=== PATIENT | male | born 1950 | race Caucasian/White ===

== ENCOUNTER 2016-08-10 17:28 | Emergency (ER) | payer MEDICARE, BC ==
[~2016-08-10] VITALS: Ht 172.7 cm; Wt 109.1 kg
[~2016-08-10 17:28] MED LIST: ALLOPURINOL100 MG PO; AMBIEN 5MG TABLE5 MG PO; AMLODIPINE10 MG PO; AMLOPIDINE PO; ASPIRIN 32325 MG/TAB PO; ATORVASTATIN PO; CHLORTHALIDONE25 MG PO; CIPRO 500MG TA500 MG PO; CLOPIDOGREL PO; COLCHICINE0.6 MG PO; COZAAR100 MG PO; DARVOCET-N-101 UDTAB PO; DAYPRO600 MG PO; DEXILANT30 MG PO; DOXAZOCIN PO; DOXAZOSIN4 MG PO; DOXYCYCLINE 10100 MG PO; EC NAPROSYN500 MG PO; ENALAPRIL PO; FISH OIL CONC1000 MG PO; HCTZ 25MG25 MG PO; LASIX 20MG TABL20 MG PO; LEVOTHYROXIN0.137 MG PO; LEVOTHYROXINE0.05 M1 PO; LIPITOR 10MG10 MG PO; LIPITOR20 MG PO; LIVALO PO; LIVALO4 MG PO; LORTAB 5/500 501 TAB PO; MASON NATURAL2000 IU PO; METOPROLOL50 MG PO; MOTRIN IB200 MG PO; NIACIN250 M2 PO; NITROSTAT0.4 MG/TAB SL; NORCO 325 MG-51 TAB PO; NORCO 325 MG-7.1 TAB PO; OMEPRAZOLE20 MG PO; PHENERGAN 25 TA25 MG PO; PHENERGAN25 MG RC; PLAVIX 75MG TAB75 MG PO; PRAVACHOL80 MG PO; PREDNISONE10 MG PO; PRILOSEC 20MG20 MG PO; PROBENECID PO; RANITIDINE 7575 MG PO; TESSALON PERLE200 MG PO; TOPROL XL 50MG50 MG PO; TOPROL XL25 MG PO; ULORIC40 MG PO; VENTOLIN0.09 MG IH; VICODIN 5/5001 UDTAB PO; VIT D; VITAMIN D32000 IU PO; VITAMIN D50000 IU PO; ZANTAC 150MG T150 MG PO; ZANTAC 7575 MG PO; ZOFRAN ODT4 MG PO; [UNRECOGNIZED DRUG - OTHER]; [UNRECOGNIZED DRUG - OTHER]
[2016-08-10 17:29] VITALS: TEMP 98.6
[2016-08-10 18:58] VITALS: BP 161/68; PULSE 74
== END 2016-08-10 18:58 | disposition home or self-care (01) ==
LOC: COL.ER 17:28
DX: J04.0 Acute laryngitis (principal); J02.9 Acute pharyngitis, unspecified; B97.89 Other viral agents as the cause of diseases classified elsewhere; I25.10 Atherosclerotic heart disease of native coronary artery without angina pectoris; Z95.5 Presence of coronary angioplasty implant and graft; I10 Essential (primary) hypertension

== ENCOUNTER 2016-08-12 18:37 | Inpatient (IN) | payer MEDICARE, BC ==
[~2016-08-12] VITALS: Ht 172.7 cm; Wt 103.1 kg
[2016-08-12 20:10] LABS: BASO % 0.4 % (0.0-2.0); EOS % 0.3 % (0-4.0); GRAN % 87.6 % (42.2-75.2); HEMATOCRIT 37.2 % (42.0-52.0); HEMOGLOBIN 13.1 g/dl (13.5-18.0); LYMPH # 0.5 (1.2-3.4); LYMPH % 5.9 % (20.0-51.0); MEAN CELL VOLUME 101 fl (80.0-100.0); MEAN CORPUSCULAR HEMOGLOBIN 35 pg (27.0-31.0); MEAN CORPUSCULAR HGB CONC 35 g/dl (33.0-37.0); MEAN PLATELET VOLUME 9.5 fl (7.4-10.4); MONO # 0.5 (0.1-0.6); MONO % 5.5 % (1.7-9.3); PLATELET COUNT 115 K/mm3 (130-400); REDCELL DISTRIBUTION WIDTH-CV 13.9 % (11.5-14.5); WHITE BLOOD COUNT 9.1 K/mm3 (4.8-10.8)
[2016-08-12 20:23] LABS: CALCIUM 9.1 mg/dL (8.4-10.2); CREATININE, serum 1.39 mg/dL (0.66-1.25); POTASSIUM 3.6 mmol/L (3.4-5.0)
[2016-08-12 20:58] LABS: INFLUENZA B NEGATIVE
[2016-08-12] MEDS ORDERED: NEURONTIN100 MG/CAP PO (21:46)
[2016-08-12] MEDS ORDERED: JANUVIA 100MG100 MG PO (21:46)
[2016-08-12 22:49] VITALS: BP 99/65; PULSE 103; TEMP 99.8
[2016-08-13] VITALS: BP 158/56; PULSE 115; TEMP 101.9
[2016-08-13 05:19] VITALS: BP 120/68; PULSE 80; TEMP 101.4
[2016-08-13 08:22] LABS: MEAN CELL VOLUME 102 fl (80.0-100.0); MEAN CORPUSCULAR HGB CONC 34 g/dl (33.0-37.0); MEAN PLATELET VOLUME 9.7 fl (7.4-10.4); PLATELET COUNT 114 K/mm3 (130-400); RED BLOOD COUNT 3.29 M/mm3 (4.20-5.60); REDCELL DISTRIBUTION WIDTH-CV 13.8 % (11.5-14.5); WHITE BLOOD COUNT 10.1 K/mm3 (4.8-10.8)
[2016-08-13 08:24] LABS: ADD PATHOLOGY DIFF REVIEW NO; HEMATOCRIT 33.7 % (42.0-52.0); HEMOGLOBIN 11.6 g/dl (13.5-18.0); MEAN CORPUSCULAR HEMOGLOBIN 35 pg (27.0-31.0)
[2016-08-13 08:35] LABS: CALCIUM 8.3 mg/dL (8.4-10.2); CREATININE, serum 1.58 mg/dL (0.66-1.25); POTASSIUM 3.4 mmol/L (3.4-5.0)
[2016-08-13 08:44] LABS: BAND 20 % (0-10); EOSINOPHIL 1 % (0-4); METAMYELOCYTE 1 % (0-0); NEUTROPHILS 65 % (42.0-75.2); PLATELET ESTIMATE DECREASED (NORMAL); TOTAL CELLS COUNTED 100
[2016-08-13 10:41] LABS: C-REACTIVE PROTEIN 24.6 mg/dL (0.0-0.9)
[2016-08-13 11:03] VITALS: BP 116/50; PULSE 96; TEMP 98.3
[2016-08-13 14:29] VITALS: BP 97/39; PULSE 85; TEMP 98.8
[2016-08-13 18:34] VITALS: BP 103/51; PULSE 77; TEMP 98.7
[2016-08-13 22:00] VITALS: BP 105/40; PULSE 80; TEMP 98.6
[2016-08-14 02:41] VITALS: BP 130/55; PULSE 81; TEMP 97.7
[2016-08-14 05:41] VITALS: BP 125/57; PULSE 86; TEMP 99.6
[2016-08-14 09:03] LABS: ADD PATHOLOGY DIFF REVIEW NO
[2016-08-14 09:06] LABS: MEAN CELL VOLUME 104 fl (80.0-100.0); MEAN CORPUSCULAR HGB CONC 34 g/dl (33.0-37.0); PLATELET COUNT 130 K/mm3 (130-400); RED BLOOD COUNT 2.96 M/mm3 (4.20-5.60); REDCELL DISTRIBUTION WIDTH-CV 14.1 % (11.5-14.5); WHITE BLOOD COUNT 8.5 K/mm3 (4.8-10.8)
[2016-08-14 09:11] LABS: HEMATOCRIT 30.8 % (42.0-52.0); HEMOGLOBIN 10.4 g/dl (13.5-18.0); MEAN CORPUSCULAR HEMOGLOBIN 35 pg (27.0-31.0)
[2016-08-14 09:18] LABS: CALCIUM 8.1 mg/dL (8.4-10.2); CREATININE, serum 1.53 mg/dL (0.66-1.25); MAGNESIUM 1.5 mg/dL (1.6-2.3); POTASSIUM 3.7 mmol/L (3.4-5.0)
[2016-08-14 09:33] LABS: BAND 7 % (0-10); EOSINOPHIL 1 % (0-4); NEUTROPHILS 84 % (42.0-75.2); PLATELET ESTIMATE NORMAL (NORMAL); TOTAL CELLS COUNTED 100
[2016-08-14 10:16] VITALS: BP 133/64; PULSE 84; TEMP 98.4
[2016-08-14 14:38] VITALS: BP 108/79; PULSE 85; TEMP 98.5
[2016-08-14 17:22] VITALS: BP 108/59; PULSE 80; TEMP 98.2
[2016-08-14 22:00] VITALS: BP 129/54; PULSE 90; TEMP 98.1
[2016-08-15 02:41] VITALS: BP 116/55; PULSE 83; TEMP 98.8
[2016-08-15 06:02] VITALS: BP 127/75; PULSE 98; TEMP 98.5
[2016-08-15 07:26] LABS: CREATININE, serum 1.39 mg/dL (0.66-1.25); MAGNESIUM 2.3 mg/dL (1.6-2.3); POTASSIUM 3.7 mmol/L (3.4-5.0)
[2016-08-15 10:56] VITALS: BP 126/69; PULSE 92; TEMP 98
[2016-08-15 14:00] VITALS: BP 122/58; PULSE 86; TEMP 99.7
[2016-08-15 17:17] VITALS: BP 122/50; PULSE 87; TEMP 98.8
[2016-08-15 22:20] VITALS: BP 138/54; PULSE 92; TEMP 98.8
[2016-08-16] VITALS (7 sets, daily range): BP systolic 112–144; BP diastolic 53–68; PULSE 70–91; TEMP 97.7–100
[2016-08-16 04:11] LABS: MEAN CELL VOLUME 103 fl (80.0-100.0); MEAN CORPUSCULAR HGB CONC 34 g/dl (33.0-37.0); MEAN PLATELET VOLUME 9.5 fl (7.4-10.4); PLATELET COUNT 145 K/mm3 (130-400); RED BLOOD COUNT 2.77 M/mm3 (4.20-5.60); REDCELL DISTRIBUTION WIDTH-CV 14.1 % (11.5-14.5); WHITE BLOOD COUNT 7.6 K/mm3 (4.8-10.8)
[2016-08-16 04:17] LABS: ADD PATHOLOGY DIFF REVIEW NO; HEMATOCRIT 28.5 % (42.0-52.0); HEMOGLOBIN 9.6 g/dl (13.5-18.0); MEAN CORPUSCULAR HEMOGLOBIN 35 pg (27.0-31.0)
[2016-08-16 04:19] LABS: CALCIUM 7.8 mg/dL (8.4-10.2); CREATININE, serum 1.33 mg/dL (0.66-1.25); POTASSIUM 3.5 mmol/L (3.4-5.0)
[2016-08-16 05:47] LABS: BAND 7 % (0-10); NEUTROPHILS 79 % (42.0-75.2); PLATELET ESTIMATE NORMAL (NORMAL); TOTAL CELLS COUNTED 100
[2016-08-17 03:53] VITALS: BP 125/64; PULSE 73; TEMP 97.9
[2016-08-17 07:38] VITALS: BP 121/54; PULSE 72; TEMP 97.8
[2016-08-17 11:07] LABS: INR 1.5 (0.8-3.0); PROTHROMBIN TIME 16.5 SECONDS (9.7-12.8)
[2016-08-17 11:10] LABS: PARTIAL THROMBOPLASTIN TIME 32.8 SECONDS (26.0-37.0)
[2016-08-17 12:15] VITALS: BP 117/58; PULSE 79; TEMP 98.4
[2016-08-17 15:28] VITALS: BP 112/53; PULSE 73; TEMP 98
[2016-08-17 20:40] VITALS: BP 120/58; PULSE 74; TEMP 98.3
[2016-08-17 22:12] VITALS: BP 105/52; PULSE 75; TEMP 98.3
[2016-08-18 02:27] VITALS: BP 119/58; PULSE 71; TEMP 98.3
[2016-08-18 07:57] LABS: CALCIUM 8.6 mg/dL (8.4-10.2); CREATININE, serum 1.34 mg/dL (0.66-1.25); MAGNESIUM 2.4 mg/dL (1.6-2.3); PHOSPHOROUS 2.7 mg/dL (2.5-4.5); POTASSIUM 3.3 mmol/L (3.4-5.0)
[2016-08-18 07:59] LABS: MEAN CELL VOLUME 103 fl (80.0-100.0); MEAN CORPUSCULAR HGB CONC 34 g/dl (33.0-37.0); MEAN PLATELET VOLUME 9.6 fl (7.4-10.4); PLATELET COUNT 234 K/mm3 (130-400); RED BLOOD COUNT 3.24 M/mm3 (4.20-5.60); REDCELL DISTRIBUTION WIDTH-CV 14.1 % (11.5-14.5); WHITE BLOOD COUNT 8.3 K/mm3 (4.8-10.8)
[2016-08-18 08:03] LABS: ADD PATHOLOGY DIFF REVIEW NO; HEMATOCRIT 33.3 % (42.0-52.0); HEMOGLOBIN 11.3 g/dl (13.5-18.0); MEAN CORPUSCULAR HEMOGLOBIN 35 pg (27.0-31.0)
[2016-08-18 08:32] VITALS: BP 124/65; PULSE 71; TEMP 98.3
[2016-08-18 08:40] LABS: C-REACTIVE PROTEIN 11.2 mg/dL (0.0-0.9)
[2016-08-18 08:47] LABS: BAND 3 % (0-10); EOSINOPHIL 1 % (0-4); METAMYELOCYTE 2 % (0-0); NEUTROPHILS 76 % (42.0-75.2); PLATELET ESTIMATE NORMAL (NORMAL); TOTAL CELLS COUNTED 100
[2016-08-18] MEDS ORDERED: LEVAQUIN 750MG750 M1 PO (11:06)
[2016-08-18] MEDS ORDERED: RT ADVAIR HFA 1112 G IH (11:41)
[2016-08-18 11:55] VITALS: BP 102/85; PULSE 83; TEMP 98.2
== END 2016-08-18 13:48 | disposition home or self-care (01) | DRG 190 ==
LOC: COL.ER 18:37 → SURG 21:20 → MEDICAL 08-16 21:07
PROVIDERS: Emergency Medicine; Family Medicine; Internal Medicine; Internal Medicine Pulmonary Disease; Nurse Practitioner Family
DX: J44.0 Chronic obstructive pulmonary disease with (acute) lower respiratory infection (principal); J18.9 Pneumonia, unspecified organism; N17.9 Acute kidney failure, unspecified; R04.2 Hemoptysis; I25.10 Atherosclerotic heart disease of native coronary artery without angina pectoris; I10 Essential (primary) hypertension; Z95.5 Presence of coronary angioplasty implant and graft; Z87.891 Personal history of nicotine dependence; J01.20 Acute ethmoidal sinusitis, unspecified; J01.00 Acute maxillary sinusitis, unspecified; J44.1 Chronic obstructive pulmonary disease with (acute) exacerbation; E11.9 Type 2 diabetes mellitus without complications; E87.6 Hypokalemia
CPT/HCPCS: 99223-AI; 99232-AI; 99233-AI; 99239; J0456; J0696; J1815; J1940; J1956; J2405; J2930; J3475; J7030; J7050

== ENCOUNTER 2017-06-27 11:04 | Day surgery (SDC) | payer MEDICARE, BC ==
[2017-06-27] VITALS (9 sets, daily range): BP systolic 125–178; BP diastolic 64–95; PULSE 57–66; TEMP 98
[~2017-06-27] VITALS: Ht 172.8 cm; Wt 100.0 kg
[~2017-06-27 11:04] MED LIST changes: +JANUVIA 100MG100 MG PO; +LEVAQUIN 750MG750 M1 PO; +NEURONTIN100 MG/CAP PO; +RT ADVAIR HFA 1112 G IH
[2017-06-27] MEDS ORDERED: VENTOLIN0.09 MG IH (11:36)
[2017-06-27] MEDS ORDERED: 00186-0372-20 IH (11:37)
[2017-06-27] MEDS ORDERED: COLACE 100100 MG/CAP PO (11:38)
[2017-06-27] MEDS ORDERED: FLONASEALLERGY NS (11:39)
[2017-06-27] MEDS ORDERED: CLARITIN 1010 MG/TAB PO (11:40)
[2017-06-27 11:41] LABS: HEMATOCRIT 41.1 % (42.0-52.0); HEMOGLOBIN 14.1 g/dl (13.5-18.0); MEAN CELL VOLUME 94 fl (80.0-100.0); MEAN CORPUSCULAR HEMOGLOBIN 32 pg (27.0-31.0); MEAN CORPUSCULAR HGB CONC 34 g/dl (33.0-37.0); MEAN PLATELET VOLUME 9.9 fl (7.4-10.4); PLATELET COUNT 145 K/mm3 (130-400); RED BLOOD COUNT 4.37 M/mm3 (4.20-5.60); REDCELL DISTRIBUTION WIDTH-CV 14.7 % (11.5-14.5)
[2017-06-27] MEDS ORDERED: TRELEGY ELLIPT1 EACH IH (11:41)
[2017-06-27] MEDS ORDERED: PROTONIX 40MG T40 MG PO (11:41)
[2017-06-27] MEDS ORDERED: AYR SALINE GEL1 NS (11:43)
[2017-06-27] MEDS ORDERED: RT SPIRIVA18 MCG IH (11:44)
[2017-06-27 11:46] LABS: CREATININE, serum 1.14 mg/dL (0.66-1.25); POTASSIUM 4.1 mmol/L (3.4-5.0)
[2017-06-27 11:48] LABS: PROTHROMBIN TIME 11.3 SECONDS (9.7-12.8)
== END 2017-06-27 19:44 | disposition home or self-care (01) ==
LOC: COL.CAR 11:04
PROVIDERS: Internal Medicine Interventional Cardiology
DX: I25.118 Atherosclerotic heart disease of native coronary artery with other forms of angina pectoris (principal); R94.39 Abnormal result of other cardiovascular function study; E78.5 Hyperlipidemia, unspecified; I10 Essential (primary) hypertension; M10.9 Gout, unspecified; Z95.5 Presence of coronary angioplasty implant and graft; Z79.51 Long term (current) use of inhaled steroids; Z79.82 Long term (current) use of aspirin; Z88.0 Allergy status to penicillin; Z88.2 Allergy status to sulfonamides; Z88.6 Allergy status to analgesic agent; Z79.02 Long term (current) use of antithrombotics/antiplatelets; Z79.84 Long term (current) use of oral hypoglycemic drugs; Z87.891 Personal history of nicotine dependence
CPT/HCPCS: J2250; J3010; Q9967

== ENCOUNTER 2018-03-06 11:46 | Emergency (ER) | payer MEDICARE, BC ==
[~2018-03-06] VITALS: Ht 170.2 cm; Wt 100.0 kg
[~2018-03-06 11:46] MED LIST changes: +00186-0372-20 IH; +AYR SALINE GEL1 NS; +CLARITIN 1010 MG/TAB PO; +COLACE 100100 MG/CAP PO; +FLONASEALLERGY NS; +PROTONIX 40MG T40 MG PO; +RT SPIRIVA18 MCG IH; +TRELEGY ELLIPT1 EACH IH
[2018-03-06 12:27] LABS: BASO # 0.1 (0.0-0.2); BASO % 0.7 % (0.0-2.0); EOS # 0.2 (0.0-0.7); EOS % 3.2 % (0-4.0); GRAN % 86.6 % (42.2-75.2); HEMATOCRIT 38.7 % (42.0-52.0); HEMOGLOBIN 13.5 g/dl (13.5-18.0); LYMPH # 0.3 (1.2-3.4); LYMPH % 3.6 % (20.0-51.0); MEAN CELL VOLUME 101 fl (80.0-100.0); MEAN CORPUSCULAR HEMOGLOBIN 35 pg (27.0-31.0); MEAN CORPUSCULAR HGB CONC 35 g/dl (33.0-37.0); MEAN PLATELET VOLUME 9.3 fl (7.4-10.4); MONO # 0.4 (0.1-0.6); MONO % 5.6 % (1.7-9.3); PLATELET COUNT 120 K/mm3 (130-400); RED BLOOD COUNT 3.85 M/mm3 (4.20-5.60); REDCELL DISTRIBUTION WIDTH-CV 13.7 % (11.5-14.5)
[2018-03-06 12:44] LABS: ALBUMIN 3.9 gm/dL (3.5-5.0); BILIRUBIN,TOTAL 1.1 mg/dL (0.0-1.0); CREATININE, serum 1.51 mg/dL (0.66-1.25); POTASSIUM 3.7 mmol/L (3.4-5.0); TOTAL PROTEIN 6.7 gm/dL (6.4-8.2)
[2018-03-06] MEDS ORDERED: LIPITOR20 MG PO (13:05)
[2018-03-06] MEDS ORDERED: ASPIRIN 32325 MG/TAB PO (13:05)
[2018-03-06] MEDS ORDERED: NORVASC2.5 MG PO (13:05)
[2018-03-06] MEDS ORDERED: COLACE 100100 MG/CAP PO (13:06)
[2018-03-06] MEDS ORDERED: CARDURA4 MG PO (13:06)
[2018-03-06] MEDS ORDERED: FLONASEALLERGY NS (13:07)
[2018-03-06] MEDS ORDERED: JANUVIA 100MG100 MG PO (13:07)
[2018-03-06] MEDS ORDERED: APRESOLINE 25MG25 MG PO (13:07)
[2018-03-06] MEDS ORDERED: SYNTHROID0.175 MG PO (13:08)
[2018-03-06] MEDS ORDERED: CLARITIN 1010 MG/TAB PO (13:08)
[2018-03-06] MEDS ORDERED: COZAAR100 MG PO (13:13)
[2018-03-06] MEDS ORDERED: NITROSTAT0.4 MG/TAB SL (13:14)
[2018-03-06] MEDS ORDERED: LOPRESSOR100 MG PO (13:14)
[2018-03-06] MEDS ORDERED: ZANTAC 7575 MG PO (13:15)
[2018-03-06] MEDS ORDERED: PLAVIX 75MG TAB75 MG PO (13:15)
[2018-03-06] MEDS ORDERED: PROTONIX 40MG T40 MG PO (13:15)
[2018-03-06] MEDS ORDERED: TRELEGY ELLIPT1 EACH IH (13:16)
[2018-03-06] MEDS ORDERED: ULORIC40 MG PO (13:16)
[2018-03-06] MEDS ORDERED: MASON NATURAL2000 IU PO (13:17)
[2018-03-06 13:42] LABS: COLLECTION METHOD CLEAN CATCH
[2018-03-06 13:51] LABS: MUCOUS Present /lpf; PH 5 (5-8); SQUAMOUS EPITHELIAL None Seen /hpf; URINE APPEARANCE Clear; URINE BACTERIA None Seen /hpf; URINE BILIRUBIN Negative (NEGATIVE); URINE BLOOD 1+ (NEGATIVE); URINE COLOR Yellow; URINE GLUCOSE Negative (NEGATIVE); URINE KETONE Negative (NEGATIVE); URINE LEUKOCYTE ESTERASE Negative (NEGATIVE); URINE NITRATE Negative (NEGATIVE); URINE PROTEIN(semi-quant) Negative (NEGATIVE); URINE RBC 0-2 /hpf; URINE UROBILINOGEN Negative (NEGATIVE)
[2018-03-06] MEDS ORDERED: DOXYCYCLINE 10100 MG PO (14:06)
[2018-03-06] MEDS ORDERED: PREDNISONE20 MG PO (14:06)
[2018-03-06] MEDS ORDERED: NEB MC (14:11)
[2018-03-06] MEDS ORDERED: IPRATROPIUM BROM3 M1 IH (14:11)
[2018-03-06 14:40] VITALS: BP 117/60; PULSE 75; TEMP 100.8
== END 2018-03-06 14:41 | disposition home or self-care (01) ==
LOC: COL.ER 11:46
PROVIDERS: Emergency Medicine; Physician Assistant
DX: J44.1 Chronic obstructive pulmonary disease with (acute) exacerbation (principal); J20.9 Acute bronchitis, unspecified; I10 Essential (primary) hypertension; I50.9 Heart failure, unspecified; E78.5 Hyperlipidemia, unspecified; E11.9 Type 2 diabetes mellitus without complications; E03.9 Hypothyroidism, unspecified; Z79.82 Long term (current) use of aspirin; Z79.51 Long term (current) use of inhaled steroids; Z79.02 Long term (current) use of antithrombotics/antiplatelets; Z87.891 Personal history of nicotine dependence; Z87.442 Personal history of urinary calculi; Z98.890 Other specified postprocedural states
CPT/HCPCS: J2405; J7030

== ENCOUNTER 2018-08-26 14:23 | Emergency (ER) | payer MEDICARE, BC ==
[~2018-08-26] VITALS: Ht 170.2 cm; Wt 86.4 kg
[~2018-08-26 14:23] MED LIST changes: +APRESOLINE 25MG25 MG PO; +CARDURA4 MG PO; +IPRATROPIUM BROM3 M1 IH; +LOPRESSOR100 MG PO; +NEB MC; +NORVASC2.5 MG PO; +PREDNISONE20 MG PO; +SYNTHROID0.175 MG PO
[2018-08-26 14:26] VITALS: BP 144/74; TEMP 97
[2018-08-26 16:54] VITALS: PULSE 64
== END 2018-08-26 16:10 | disposition home or self-care (01) ==
LOC: COL.ER 14:23
DX: S62.665A Nondisplaced fracture of distal phalanx of left ring finger, initial encounter for closed fracture (principal); S46.912A Strain of unspecified muscle, fascia and tendon at shoulder and upper arm level, left arm, initial encounter; S80.211A Abrasion, right knee, initial encounter; I25.2 Old myocardial infarction; I10 Essential (primary) hypertension; E11.9 Type 2 diabetes mellitus without complications; Z79.84 Long term (current) use of oral hypoglycemic drugs; Z79.82 Long term (current) use of aspirin; Z79.02 Long term (current) use of antithrombotics/antiplatelets; Z95.5 Presence of coronary angioplasty implant and graft; Z87.891 Personal history of nicotine dependence; W01.0XXA Fall on same level from slipping, tripping and stumbling without subsequent striking against object, initial encounter

== ENCOUNTER 2018-09-08 09:33 | Inpatient (IN) | payer MEDICARE, BC ==
[~2018-09-08] VITALS: Ht 172.7 cm; Wt 94.5 kg
[2018-09-08 09:56] LABS: COLLECTION METHOD CLEAN CATCH
[2018-09-08 10:09] LABS: MUCOUS Present /lpf; PH 5 (5-8); SQUAMOUS EPITHELIAL 0-2 /hpf; URINE APPEARANCE Clear; URINE BACTERIA None Seen /hpf; URINE BILIRUBIN Negative (NEGATIVE); URINE BLOOD 1+ (NEGATIVE); URINE COLOR Amber; URINE GLUCOSE Negative (NEGATIVE); URINE KETONE Negative (NEGATIVE); URINE LEUKOCYTE ESTERASE Negative (NEGATIVE); URINE NITRATE Negative (NEGATIVE); URINE PROTEIN(semi-quant) 1+ (NEGATIVE); URINE RBC 0-2 /hpf; URINE UROBILINOGEN Negative (NEGATIVE)
[2018-09-08 10:11] LABS: BASO % 0.5 % (0.0-2.0); EOS # 0.2 (0.0-0.7); EOS % 2.8 % (0-4.0); GRAN # 4.5 (1.4-6.5); GRAN % 75.6 % (42.2-75.2); MEAN CELL VOLUME 103 fl (80.0-100.0); MEAN CORPUSCULAR HEMOGLOBIN 35 pg (27.0-31.0); MEAN CORPUSCULAR HGB CONC 34 g/dl (33.0-37.0); MONO # 0.3 (0.1-0.6); MONO % 4.8 % (1.7-9.3); PLATELET COUNT 97 K/mm3 (130-400); RED BLOOD COUNT 2.86 M/mm3 (4.20-5.60); REDCELL DISTRIBUTION WIDTH-CV 15.6 % (11.5-14.5)
[2018-09-08 10:13] LABS: HEMATOCRIT 29.5 % (42.0-52.0)
[2018-09-08 10:21] LABS: ALANINE AMINOTRANSFERASE 19 U/L (21-72); ALBUMIN 3.5 gm/dL (3.5-5.0); ALKALINE PHOSPHATASE 58 U/L (50-136); ANION GAP 9 mmol/L (7-16); AST,SGOT 22 U/L (15-37); BILIRUBIN,TOTAL 1.1 mg/dL (0.0-1.0); BLOOD UREA NITROGEN 18 mg/dL (9-20); CALCIUM 8.3 mg/dL (8.4-10.2); CARBON DIOXIDE 25 mmol/L (22-30); CHLORIDE 107 mmol/L (98-107); CREATININE, serum 1.47 (0.66-1.25); GLUCOSE 128 mg/dL (74-106); LIPASE 46 U/L (23-300); SODIUM 141 mmol/L (137-145); TOTAL PROTEIN 5.8 gm/dL (6.4-8.2)
[2018-09-08 10:22] LABS: C-REACTIVE PROTEIN < 0.5 mg/dL (0.0-0.9)
[2018-09-08 16:33] VITALS: BP 150/50; PULSE 54; TEMP 97.8
--- NOTE | 2018-09-08 18:00 | NUR ---
Hospitalist saw patient. NPO. IV fluids infusing. Denies pain and nausea. Ambulatory to bathroom to void frequently. Family here.
[2018-09-08] MEDS ORDERED: LOPRESSOR100 MG PO (18:02)
[2018-09-08] MEDS ORDERED: ULTRAM 50MG TAB50 MG PO (18:05)
[2018-09-08] MEDS ORDERED: JANUVIA 100MG100 MG PO (18:06)
[2018-09-08] MEDS ORDERED: APRESOLINE 25MG25 MG PO (18:06)
[2018-09-08] MEDS ORDERED: IMDUR 30MG30 MG/TAB PO (18:08)
[2018-09-08] MEDS ORDERED: NEURONTIN100 MG/CAP PO (18:08)
[2018-09-08] MEDS ORDERED: COLCRYS0.6 MG PO (18:09)
--- NOTE | 2018-09-08 18:13 | NUR ---
THE PTS DAUGHTER REPORTED THAT HE IS ALLERGIC TO PENICILLINS AND AMOXICILLIN. MAXAPIME HAS BEEN ORDERED. CALL TO AILIN TERRELL WHO IS AWARE AND STATED, "YES, BUT IT'S PROBABLY THE BEST CHOICE FOR HIM". WE WILL MONITOR HIM FOR ADVERSE REACTION.
[2018-09-08 20:45] VITALS: BP 168/68; PULSE 61; TEMP 97.9
[2018-09-09] VITALS (7 sets, daily range): BP systolic 119–162; BP diastolic 46–61; PULSE 58–71; TEMP 97.7–99
--- NOTE | 2018-09-09 08:00 | NUR ---
Alert. Denies nausea. States has a few sharp pains occasionally in right back. Denies need for pain med. IV fluids infusing. Ambulatory with standby assist. Family here.
[2018-09-09 09:29] LABS: BASO % 0.5 % (0.0-2.0); EOS # 0.1 (0.0-0.7); EOS % 1.6 % (0-4.0); GRAN # 4.7 (1.4-6.5); GRAN % 81.4 % (42.2-75.2); LYMPH # 0.7 (1.2-3.4); LYMPH % 11.5 % (20.0-51.0); MEAN CELL VOLUME 103 fl (80.0-100.0); MEAN CORPUSCULAR HGB CONC 34 g/dl (33.0-37.0); MEAN PLATELET VOLUME 9.9 fl (7.4-10.4); MONO # 0.3 (0.1-0.6); MONO % 4.5 % (1.7-9.3); PLATELET COUNT 96 K/mm3 (130-400); RED BLOOD COUNT 2.71 M/mm3 (4.20-5.60); REDCELL DISTRIBUTION WIDTH-CV 15.7 % (11.5-14.5)
[2018-09-09 09:33] LABS: HEMATOCRIT 27.8 % (42.0-52.0); HEMOGLOBIN 9.5 g/dl (13.5-18.0); MEAN CORPUSCULAR HEMOGLOBIN 35 pg (27.0-31.0)
[2018-09-09 10:02] LABS: ALBUMIN 3.2 gm/dL (3.5-5.0); BILIRUBIN,TOTAL 1.4 mg/dL (0.0-1.0); CALCIUM 8.3 mg/dL (8.4-10.2); CREATININE, serum 1.38 (0.66-1.25); MAGNESIUM 1.8 mg/dL (1.6-2.3); POTASSIUM 3.8 mmol/L (3.4-5.0); TOTAL PROTEIN 5.4 gm/dL (6.4-8.2)
[2018-09-09 13:16] LABS: TSH w REFLEX 0.049 uIU/mL (0.465-4.680)
--- NOTE | 2018-09-09 13:38 | NUR ---
Plan: To go home with Maryjane and DTR Nalini Gibbs . Patient reports that his is care support and will also transport home. Patient reports that he has grab bars at home, uses a CPAP every night. nebulizer as needed, and obtians medications from [facility]. Patient denies the need for Home health care. Patient inidcated that his PCP is Dr. Maxine Sanchez and a f/u in [facility]. Patient denies having any other care concerns. Patient indicated there is no dpoa and declined to set one at this time. Will continue to follow.
--- NOTE | 2018-09-09 18:00 | NUR ---
Drowsy. No c/o pain or nausea. IV antibiotic infusing. Family here.
--- NOTE | 2018-09-10 02:31 | NUR ---
Patient complains of upset stomach. Crackers and sprite given to patient. Earlier in the shift patient stated he was having some troubles breathing. Oxygen saturation 93% on 2L. RT came to bedside and administered breathing treatment. Patient states that sitting up on the side of the bed helped him feel better. Patient educated on ambulation, getting out of bed during the day, and deep breathing to help expand his lungs, so he doesn't feel so short of breath. Patient has CPAP on currently. Will continue to monitor patient.
[2018-09-10 04:10] VITALS: BP 147/59; PULSE 68; TEMP 97.9
[2018-09-10 06:41] LABS: BASO % 0.2 % (0.0-2.0); EOS % 0.5 % (0-4.0); GRAN # 4.9 (1.4-6.5); GRAN % 82.2 % (42.2-75.2); LYMPH # 0.7 (1.2-3.4); LYMPH % 11.3 % (20.0-51.0); MEAN CELL VOLUME 104 fl (80.0-100.0); MEAN CORPUSCULAR HGB CONC 34 g/dl (33.0-37.0); MEAN PLATELET VOLUME 9.8 fl (7.4-10.4); MONO # 0.3 (0.1-0.6); MONO % 5.1 % (1.7-9.3); PLATELET COUNT 86 K/mm3 (130-400); RED BLOOD COUNT 2.58 M/mm3 (4.20-5.60); REDCELL DISTRIBUTION WIDTH-CV 15.8 % (11.5-14.5)
[2018-09-10 06:45] LABS: HEMATOCRIT 26.9 % (42.0-52.0); MEAN CORPUSCULAR HEMOGLOBIN 35 pg (27.0-31.0)
[2018-09-10 06:57] LABS: CALCIUM 8.1 mg/dL (8.4-10.2); CREATININE, serum 1.33 (0.66-1.25); POTASSIUM 3.8 mmol/L (3.4-5.0)
[2018-09-10 08:17] VITALS: BP 137/62; PULSE 67; TEMP 98.6
--- NOTE | 2018-09-10 10:30 | NUR ---
Patient alert and oriented, answers questions appropriately. See assessment. Abdomen soft, non tender, non distended. Bowel sounds active x4 quads. +Flatus. +Bowel movement. No c/o pain or discomfort. at bedside continously stating patient is nauseated or in pain. Patient frequently interrupts and says he is fine. asks for nausea and pain medication for patient, patient refuses, stating he is fine and has no needs. No other c/o at this time.
[2018-09-10 12:28] VITALS: BP 120/48; PULSE 63; TEMP 99.5
[2018-09-10] MEDS ORDERED: LEVAQUIN 750MG750 M1 PO (14:39)
[2018-09-10] MEDS ORDERED: FLAGYL500 MG PO (14:39)
--- NOTE | 2018-09-10 16:00 | NUR ---
Discharge instructions reviewed with patient and spouse, verbalized understanding. Discharged via wheelchair to auto/home with spouse at 1600.
== END 2018-09-10 16:00 | disposition home or self-care (01) | DRG 445 ==
LOC: COL.ER 09:33 → SURG 12:35
PROVIDERS: Physician Assistant; Student in an Organized Health Care Education/Training Program; ADMIT Family Medicine
DX: K81.0 Acute cholecystitis (principal); J90 Pleural effusion, not elsewhere classified; D69.6 Thrombocytopenia, unspecified; I25.10 Atherosclerotic heart disease of native coronary artery without angina pectoris; J44.9 Chronic obstructive pulmonary disease, unspecified; E66.9 Obesity, unspecified; R00.1 Bradycardia, unspecified; E11.22 Type 2 diabetes mellitus with diabetic chronic kidney disease; D53.9 Nutritional anemia, unspecified; G47.33 Obstructive sleep apnea (adult) (pediatric); E78.5 Hyperlipidemia, unspecified; K21.9 Gastro-esophageal reflux disease without esophagitis; E03.9 Hypothyroidism, unspecified; I12.9 Hypertensive chronic kidney disease with stage 1 through stage 4 chronic kidney disease, or unspecified chronic kidney disease; N18.9 Chronic kidney disease, unspecified; M19.90 Unspecified osteoarthritis, unspecified site; M10.9 Gout, unspecified; Z87.442 Personal history of urinary calculi; Z79.82 Long term (current) use of aspirin; Z79.02 Long term (current) use of antithrombotics/antiplatelets; I25.2 Old myocardial infarction; Z79.51 Long term (current) use of inhaled steroids; Z95.5 Presence of coronary angioplasty implant and graft; Z79.890 Hormone replacement therapy; Z87.891 Personal history of nicotine dependence; Z68.30 Body mass index [BMI] 30.0-30.9, adult
CPT/HCPCS: 99239; A4216; J0692; J1956; J2270; J2405; J2550; J7030; J7120; Q9967

== ENCOUNTER → 2018-09-12 | Outpatient (CLI) | payer MEDICARE, BC ==
[~2018-09-12] MED LIST changes: +COLCRYS0.6 MG PO; +FLAGYL500 MG PO; +IMDUR 30MG30 MG/TAB PO; +ULTRAM 50MG TAB50 MG PO
== END ==
LOC: COL.VAS 13:30
DX: Z01.810 Encounter for preprocedural cardiovascular examination (principal); I50.9 Heart failure, unspecified

== ENCOUNTER 2018-09-14 11:56 | Inpatient (IN) | payer MEDICARE, BC ==
[~2018-09-14] VITALS: Ht 172.7 cm; Wt 88.4 kg
[2018-09-14 13:18] VITALS: BP 134/54; PULSE 70; TEMP 98.2
--- NOTE | 2018-09-14 14:27 | NUR ---
patient arrived to floor. med rx attempted. patient was uninformed of medications he is taking and when he should be taking them. family at bedside.
[2018-09-14 15:23] LABS: BASO % 0.4 % (0.0-2.0); EOS # 0.1 (0.0-0.7); EOS % 1.9 % (0-4.0); GRAN # 3.8 (1.4-6.5); GRAN % 78.1 % (42.2-75.2); LYMPH # 0.6 (1.2-3.4); LYMPH % 13.2 % (20.0-51.0); MEAN CELL VOLUME 102 fl (80.0-100.0); MEAN CORPUSCULAR HGB CONC 35 g/dl (33.0-37.0); MEAN PLATELET VOLUME 9.5 fl (7.4-10.4); MONO # 0.3 (0.1-0.6); MONO % 5.8 % (1.7-9.3); PLATELET COUNT 153 K/mm3 (130-400); RED BLOOD COUNT 2.52 M/mm3 (4.20-5.60); REDCELL DISTRIBUTION WIDTH-CV 16.9 % (11.5-14.5)
[2018-09-14 15:24] LABS: HEMATOCRIT 25.6 % (42.0-52.0); MEAN CORPUSCULAR HEMOGLOBIN 36 pg (27.0-31.0)
[2018-09-14 15:36] LABS: ALBUMIN 3.1 gm/dL (3.5-5.0); CALCIUM 8.3 mg/dL (8.4-10.2); CREATININE, serum 1.29 (0.66-1.25); TOTAL PROTEIN 5.3 gm/dL (6.4-8.2)
[2018-09-14 15:38] LABS: POTASSIUM 2.9 mmol/L (3.4-5.0)
[2018-09-14 17:26] VITALS: BP 167/67; PULSE 82; TEMP 97.7
--- NOTE | 2018-09-14 17:52 | NUR ---
Patient resting in bed. Hospitalist team has rounded. Orders obtained. K+ being replaced per orders. Reviewed with patient plan of care. He reports feeling nervous/worried. Tried to reassure him. glazier supervisor started IV to Right wrist. He is ordering dinner. His family at bedside.
[2018-09-14 19:38] VITALS: BP 128/60; PULSE 72; TEMP 98.3
--- NOTE | 2018-09-14 20:00 | NUR ---
Report received, assumed care for shift production supervisor. Assessment complete. VS stable. Denies pain, N/V or shortness of breath. Plan of care discussed for this shift to inculed K Protocol Verbalizes understanding. Instructed to call for assistance to bathroom as needed. Edema noted to bilateral lower extremities. Denies questions or concerns at this time. Call light in reach. Will monitor.
--- NOTE | 2018-09-14 21:40 | NUR ---
C/O nausea. States potassium seems to be upsetting his stomach. New orders received from hospitalist for antiemetic. Will monitor.
--- NOTE | 2018-09-14 22:30 | NUR ---
States nausea is better. Denies pain. WIll monitor.
[2018-09-14 23:51] VITALS: BP 152/67; PULSE 64; TEMP 98.3
[2018-09-15] VITALS (7 sets, daily range): BP systolic 117–177; BP diastolic 58–88; PULSE 64–77; TEMP 98.1–98.4
[2018-09-15 01:38] LABS: POTASSIUM 3.2 mmol/L (3.4-5.0)
[2018-09-15 02:04] LABS: CALCIUM 8.3 mg/dL (8.4-10.2); CREATININE, serum 1.33 (0.66-1.25)
--- NOTE | 2018-09-15 06:00 | NUR ---
Rested off and on this shift. Last dose of potassium given per protocol for K level of 3.2/GFR 53. Denies pain, nausea or shortness of breath. Encouraged to call for questions or concerns. Will continue to monitor.
[2018-09-15 08:58] LABS: BASO % 0.5 % (0.0-2.0); EOS # 0.1 (0.0-0.7); EOS % 2.3 % (0-4.0); GRAN % 69.6 % (42.2-75.2); LYMPH # 0.9 (1.2-3.4); LYMPH % 20.1 % (20.0-51.0); MEAN CELL VOLUME 103 fl (80.0-100.0); MEAN CORPUSCULAR HGB CONC 34 g/dl (33.0-37.0); MEAN PLATELET VOLUME 9.9 fl (7.4-10.4); MONO # 0.3 (0.1-0.6); MONO % 6.8 % (1.7-9.3); PLATELET COUNT 184 K/mm3 (130-400); REDCELL DISTRIBUTION WIDTH-CV 17.2 % (11.5-14.5)
[2018-09-15 09:04] LABS: CALCIUM 8.5 mg/dL (8.4-10.2); CREATININE, serum 1.18 (0.66-1.25); POTASSIUM 3.5 mmol/L (3.4-5.0)
[2018-09-15 09:13] LABS: HEMATOCRIT 26.8 % (42.0-52.0); HEMOGLOBIN 9.2 g/dl (13.5-18.0); MEAN CORPUSCULAR HEMOGLOBIN 35 pg (27.0-31.0)
--- NOTE | 2018-09-15 11:14 | NUR ---
Visited and provided spiritual care to the patient.
--- NOTE | 2018-09-15 17:30 | NUR ---
No complaints. Denied shortness of breath today. Chest x-ray taken. Diuresing well. Potassium replaced per protocol. Walked in halls with family.
--- NOTE | 2018-09-15 20:00 | NUR ---
Assumed care for veterinary hospital shift lead. Assessment complete. VS stable. Family at bedside. Plan of care discussed for this shift to include Lasix. Verbalizes understanding. Denies nausea at this time. Denies pain. States he is not short of breath now but does get a little "winded" when up to bathroom. Denies any questions or concerns. Call light in reach. Will monitor.
--- NOTE | 2018-09-15 22:10 | NUR ---
C/O nausea but daughter states she doesnt want him to take the phenergan as it makes his dizzy. Patient states he will take phenergan that he doesnt mind. I did contact XANDER Duong to see if Zofran was an option. New order for EKG-notified cardiopulmonary. Update patient and family. Patient states nausea has subsided now and doesnt need anything but will let this nurse know if nausea returns.
[2018-09-16] VITALS (8 sets, daily range): BP systolic 126–166; BP diastolic 57–82; PULSE 64–73; TEMP 97.9–98.4
--- NOTE | 2018-09-16 12:14 | NUR ---
Patient lives at home with his (Lou Strong [phone]) in [place], [place] and plans to return home upon recovery. Patient is moderately indpendent with daily living activites with no anticipated durable medical equipment needs at this time, his primary care physician is Dr. Maxine Castro and also receives medical care from Dr. Abhay Garibay, his pharmacy is [facility], and he does not have advance directives of healthcare completed at this time. creative services coordinator will follow as needed.
--- NOTE | 2018-09-16 18:00 | NUR ---
Diuresing well after IV Lasix. Complained of loose stools. No c/o nausea or pain. Ambulatory with standby assist. No c/o shortness of breath. Family in room.
--- NOTE | 2018-09-16 20:00 | NUR ---
Report received, assumed care for filer repairer. Assessment complete. VS stable. Plan of care discussed for AM CT scan and blood draw to recheck potassium levels. Verbalizes understanding and denies questions. Noted to have +2 edema to bilateral lower extremitites. Denies pain. Denies shortness of breath except with excertion. States he hasnt had any more loose stools yet. Teaching done on need for stool specimen. Verbalizes understanding. at bedside. Call light in reach, bed in low position/wheels locked. Will monitor.
[2018-09-17 03:38] VITALS: BP 135/67; PULSE 75; TEMP 98.9
[2018-09-17 06:23] LABS: BASO % 0.5 % (0.0-2.0); EOS # 0.2 (0.0-0.7); GRAN # 4.7 (1.4-6.5); GRAN % 72.6 % (42.2-75.2); HEMATOCRIT 32.7 % (42.0-52.0); HEMOGLOBIN 10.9 g/dl (13.5-18.0); LYMPH # 0.9 (1.2-3.4); LYMPH % 14.4 % (20.0-51.0); MEAN CELL VOLUME 105 fl (80.0-100.0); MEAN CORPUSCULAR HEMOGLOBIN 35 pg (27.0-31.0); MEAN CORPUSCULAR HGB CONC 33 g/dl (33.0-37.0); MEAN PLATELET VOLUME 9.1 fl (7.4-10.4); MONO # 0.6 (0.1-0.6); MONO % 8.9 % (1.7-9.3); PLATELET COUNT 197 K/mm3 (130-400); RED BLOOD COUNT 3.12 M/mm3 (4.20-5.60); REDCELL DISTRIBUTION WIDTH-CV 18.2 % (11.5-14.5)
[2018-09-17 06:35] LABS: CREATININE, serum 1.61 (0.66-1.25); MAGNESIUM 1.8 mg/dL (1.6-2.3); POTASSIUM 3.3 mmol/L (3.4-5.0)
[2018-09-17 07:21] VITALS: BP 124/81; PULSE 68; TEMP 98.7
[2018-09-17 11:22] VITALS: BP 111/91; PULSE 67; TEMP 98.3
[2018-09-17 16:22] VITALS: BP 96/43; PULSE 59; TEMP 97.9
--- NOTE | 2018-09-17 18:30 | NUR ---
Patient had a good day. He seems to be feeling better. No complaints of pain or nausea today. He was able to shower and walked in the halls a few times. His family is at bedside. He is tolerating his diet without issues. No other changes at this time. Call light within reach.
--- NOTE | 2018-09-17 20:00 | NUR ---
PATIENT IS A&O. VSS. DENIES PAIN AT THIS TIME. PATIENT SCHEDULED FOR XOCHITL LATE TOMORROW. PATIENT NPO AFTER MIDNIGHT WITH SIPS ALLOWED TILL AM SINCE LATE SURGERY. BS 142, NO SSI. PM MEDS GIVEN. NO C/O N/V. LEFT HAND SPLINT DUE TO FALL AT HOME BEFORE ADMISSION. REPORTS PAIN IS MANAGED AT THIS TIME. HEAD TO TOE ASSESSMENT WNL. FAMILY AT BEDSIDE. NO OTHER NEEDS. CALL LIGHT IN REACH.
[2018-09-17 21:34] VITALS: BP 123/52; PULSE 68; TEMP 98.7
[2018-09-17 23:40] VITALS: BP 112/60; PULSE 75; TEMP 98.1
[2018-09-18] VITALS (12 sets, daily range): BP systolic 99–147; BP diastolic 49–83; PULSE 55–74; TEMP 97.5–98.6
[2018-09-18 07:04] LABS: BASO % 0.4 % (0.0-2.0); EOS # 0.2 (0.0-0.7); EOS % 3.1 % (0-4.0); GRAN # 3.8 (1.4-6.5); GRAN % 70.6 % (42.2-75.2); HEMOGLOBIN 10.2 g/dl (13.5-18.0); LYMPH # 0.8 (1.2-3.4); LYMPH % 14.7 % (20.0-51.0); MEAN CELL VOLUME 105 fl (80.0-100.0); MEAN CORPUSCULAR HEMOGLOBIN 35 pg (27.0-31.0); MEAN CORPUSCULAR HGB CONC 33 g/dl (33.0-37.0); MEAN PLATELET VOLUME 9.4 fl (7.4-10.4); MONO # 0.6 (0.1-0.6); MONO % 10.5 % (1.7-9.3); PLATELET COUNT 164 K/mm3 (130-400); RED BLOOD COUNT 2.93 M/mm3 (4.20-5.60); REDCELL DISTRIBUTION WIDTH-CV 18.1 % (11.5-14.5)
[2018-09-18 07:07] LABS: CREATININE, serum 1.49 (0.66-1.25); MAGNESIUM 1.8 mg/dL (1.6-2.3)
[2018-09-18 07:15] LABS: HEMATOCRIT 30.7 % (42.0-52.0)
[2018-09-18 07:21] LABS: POTASSIUM 2.8 mmol/L (3.4-5.0)
--- NOTE | 2018-09-18 11:47 | NUR ---
First visit from the line walker. No needs right now.
--- NOTE | 2018-09-18 14:29 | NUR ---
Patient is going down for surgery at this time. His family is at bedside. Consent signed and on chart. Notified Jessica Sloan CRNA that there is potassium recheck pending in lab. No other changes at this time.
--- NOTE | 2018-09-18 18:30 | NUR ---
Patient has been doing well since surgery. He is alert and oriented. His family is at bedside. Discussed what he have to eat and dink tonight. He is not wanting to start with solids until tomorrow. He is taking in ice chips at this time. His last 2 bags of potassium will be given. I have started one and spool tender will give the next one. Turned down the rate on the potassium to 70ml/hr because he was not tolerating it at 100ml/hr. No other changes at this time. Call light within reach.
[2018-09-19] VITALS (7 sets, daily range): BP systolic 106–143; BP diastolic 43–104; PULSE 56–73; TEMP 97.6–98.3
--- NOTE | 2018-09-19 01:46 | NUR ---
PATIENT RPORTING FEELING LIKE HE HAS FABBY URINATE. ASSISTED OUT OF BED TO BATHRROM ATTEMPTED TO URINATE SITTING ON TOILET AND STANDING UP WITH URINAL X 15 MINUETS. UNSUCESSFUL. REPORTING PRESSURE AND URGE TO URINATE. BLADDER SCAN OBTAINED. WITH 350ML SCANNED. CALL TO DR CANDELARIA NOTIFIED OF ABOVE PATIENT CONDITION. ORDER RECIVED TO STRAIGHT CATH NOW AND THEN IF UNABLE TO VOID PLACE CATHETER.
--- NOTE | 2018-09-19 07:00 | NUR ---
Report received from Crystal Smith. Pt in bathroom standing over toilet, trying to urinate for past 20 minutes but unable. Assisted back to bed. Ordered breakfast. Will try to urinate again after breakfast.
[2018-09-19 08:16] LABS: CREATININE, serum 1.8 (0.66-1.25); POTASSIUM 4.3 mmol/L (3.4-5.0)
--- NOTE | 2018-09-19 08:47 | NUR ---
Assessment charted. Pt able to void after breakfast, did take a while to get the stream going but successful. Lap sitesx5 are CDI and covered with bandaids. Denies pain. Passing gas. Feeling well. IVF to RW. Will continue to monitor.
[2018-09-19 14:30] LABS: COLLECTION METHOD CLEAN CATCH
[2018-09-19 14:36] LABS: MUCOUS Present /lpf; PH 5 (5-8); SQUAMOUS EPITHELIAL None Seen /hpf; URINE APPEARANCE Clear; URINE BACTERIA None Seen /hpf; URINE BILIRUBIN Negative (NEGATIVE); URINE BLOOD 1+ (NEGATIVE); URINE COLOR Yellow; URINE GLUCOSE 2+ (NEGATIVE); URINE KETONE Negative (NEGATIVE); URINE LEUKOCYTE ESTERASE Negative (NEGATIVE); URINE NITRATE Negative (NEGATIVE); URINE PROTEIN(semi-quant) Negative (NEGATIVE); URINE RBC 0-2 /hpf; URINE UROBILINOGEN Negative (NEGATIVE)
--- NOTE | 2018-09-19 18:48 | NUR ---
Pt has done very well today. Up ambulating floors ad lia, did laps of entire 3rd floor. Urinating well now, without difficulty. Taking PO well. Deneis pain. Resting in bed, will give bedside shift report to nightshift nurse who will resume care.
--- NOTE | 2018-09-19 19:11 | NUR ---
Report received from Mary RN
--- NOTE | 2018-09-19 20:24 | NUR ---
Resting in bed. Assessment complete. Left lower lobe crackles present. Otherwise clear. Heart sounds normal. Bowels active x4. Pusles strong throughout. Right lower leg edema present +1. Denies pain. X5 lap sites in place on ABD with bandaides. No drainage present. Cast to left wrist present. Right wrist INT flushed without complications. Denies needs at this time. Call light in reach. at bedside.
--- NOTE | 2018-09-20 03:01 | NUR ---
Rating ABD pain 3/10. Provided with PRN tylenol at this time. Call light in reach.
[2018-09-20 03:51] VITALS: BP 116/65; PULSE 54; TEMP 97.5
--- NOTE | 2018-09-20 05:36 | NUR ---
Patient required x1 dose of PRN tylenol for ABD pain. Otherwise uneventful night. remained at bedside throughout evening. Resting in bed this AM. Call light in reach.
--- NOTE | 2018-09-20 07:04 | NUR ---
Report given to ZAINA De La O
[2018-09-20 07:21] LABS: CREATININE, serum 1.68 (0.66-1.25); POTASSIUM 3.4 mmol/L (3.4-5.0)
[2018-09-20 07:23] LABS: BASO % 0.2 % (0.0-2.0); EOS # 0.1 (0.0-0.7); EOS % 0.9 % (0-4.0); GRAN # 4.2 (1.4-6.5); GRAN % 75.1 % (42.2-75.2); LYMPH # 0.6 (1.2-3.4); LYMPH % 10.9 % (20.0-51.0); MEAN CELL VOLUME 106 fl (80.0-100.0); MEAN CORPUSCULAR HGB CONC 33 g/dl (33.0-37.0); MONO # 0.7 (0.1-0.6); MONO % 12.4 % (1.7-9.3); PLATELET COUNT 139 K/mm3 (130-400); RED BLOOD COUNT 2.84 M/mm3 (4.20-5.60); REDCELL DISTRIBUTION WIDTH-CV 17.2 % (11.5-14.5)
[2018-09-20 07:25] LABS: HEMATOCRIT 30.2 % (42.0-52.0); HEMOGLOBIN 9.8 g/dl (13.5-18.0); MEAN CORPUSCULAR HEMOGLOBIN 35 pg (27.0-31.0)
--- NOTE | 2018-09-20 08:00 | NUR ---
PATIENT IS SITTING UP AT THE BEDSIDE WITH BREAKFAST TRAY. PATIENT IS A&OX4. VSS. BOWEL SOUNDS ACTIVE ALL FOUR QUADRANTS. PATIENT TOLERATING DIET WITHOUT ANY COMPLAINTS OF N/V. ABDOMINAL LAP SITES X5 DRESSED WITH BANDAIDS AND ARE CD&I. POSITIVE PEDAL PULSES EQUAL BILATERALLY. RIGHT WRIST TO INT. CALL LIGHT WITHIN REACH. PRESENT AT THE BEDSIDE.
[2018-09-20 08:51] VITALS: BP 135/55; PULSE 52; TEMP 97.5
[2018-09-20] MEDS ORDERED: INCRUSE EL62.5 MCG/A IH (08:54)
[2018-09-20] MEDS ORDERED: PLAVIX 75MG TAB75 MG PO (09:25)
--- NOTE | 2018-09-20 11:38 | NUR ---
Patient will discharge home today with his . Patient independent at home. Patient does not have any concerns with returning home. SW presented IM to patient and . Patient signed and was provided a copy.
--- NOTE | 2018-09-20 11:40 | NUR ---
PATIENT'S RIGHT WRIST INT DISCONTINUED PER PENDING DISCHARGE. TIP INTACT. PATIENT TOLERATED WELL. DISCHARGE INSTRUCTIONS REVIEWED WITH PATIENT AND FAMILY. ALL QUESTIONS ANSWERED. PATIENT PERSONAL BELONGINGS GATHERED. PATIENT TAKEN TO PERSONAL VEHICLE VIA WHEELCHAIR BY SURGICAL STAFF. PATIENT DISCHARGED.
== END 2018-09-20 11:50 | disposition home or self-care (01) | DRG 988 ==
LOC: SURG 11:56
PROVIDERS: Internal Medicine Pulmonary Disease; Nurse Practitioner Family; Physician Assistant; Surgery; ADMIT Family Medicine
PROC: 5A09457 Assistance with Respiratory Ventilation, 24-96 Consecutive Hours, Continuous Positive Airway Pressure (ICD-10-PCS; 2018-09-16)
PROC: 8E0W4CZ Robotic Assisted Procedure of Trunk Region, Percutaneous Endoscopic Approach (ICD-10-PCS; 2018-09-18)
PROC: 0FT44ZZ Resection of Gallbladder, Percutaneous Endoscopic Approach (ICD-10-PCS; principal; 2018-09-18 15:00)
DX: J18.9 Pneumonia, unspecified organism (principal); N17.9 Acute kidney failure, unspecified; I25.10 Atherosclerotic heart disease of native coronary artery without angina pectoris; J44.9 Chronic obstructive pulmonary disease, unspecified; G47.33 Obstructive sleep apnea (adult) (pediatric); M10.9 Gout, unspecified; I12.9 Hypertensive chronic kidney disease with stage 1 through stage 4 chronic kidney disease, or unspecified chronic kidney disease; E11.22 Type 2 diabetes mellitus with diabetic chronic kidney disease; N18.3 Chronic kidney disease, stage 3 (moderate); K81.9 Cholecystitis, unspecified; D53.9 Nutritional anemia, unspecified; E87.6 Hypokalemia; E78.5 Hyperlipidemia, unspecified; K21.9 Gastro-esophageal reflux disease without esophagitis; E03.9 Hypothyroidism, unspecified; M17.11 Unilateral primary osteoarthritis, right knee; I25.2 Old myocardial infarction; Z95.5 Presence of coronary angioplasty implant and graft; Z79.51 Long term (current) use of inhaled steroids; Z87.891 Personal history of nicotine dependence; Z87.442 Personal history of urinary calculi; Z88.0 Allergy status to penicillin; Z88.2 Allergy status to sulfonamides; Z86.010 Personal history of colon polyps; T50.2X5A Adverse effect of carbonic-anhydrase inhibitors, benzothiadiazides and other diuretics, initial encounter; R33.8 Other retention of urine
CPT/HCPCS: 99222; 99222-AI; 99231-AI; 99232-AI; 99233-AI; 99239; A9284; J0690; J1100; J1815; J1940; J2370; J2405; J2550; J2704; J2710; J3010; J3420; J3480

== ENCOUNTER 2019-12-31 06:41 | Outpatient (CLI) | payer MEDICARE, BC ==
[~2019-12-31] VITALS: Ht 172.7 cm; Wt 84.7 kg
[~2019-12-31 06:41] MED LIST changes: +INCRUSE EL62.5 MCG/A IH
[2019-12-31 07:03] VITALS: BP 159/70; PULSE 79; TEMP 98.7
[2019-12-31] MEDS ORDERED: BROVANA15 MCG/2 M IH (07:10)
[2019-12-31] MEDS ORDERED: PULMICORT0.25 MG/2 IH (07:13)
[2019-12-31] MEDS ORDERED: NORVASC 5MG5 MG/TAB PO (07:15)
[2019-12-31] MEDS ORDERED: ASPIRIN 32325 MG/TAB PO (07:16)
[2019-12-31] MEDS ORDERED: LEVOXYL0.137 MG PO (07:17)
[2019-12-31] MEDS ORDERED: LIPITOR 40MG TA40 MG PO (07:19)
[2019-12-31] MEDS ORDERED: TOPROL XL 50MG50 MG PO (07:20)
[2019-12-31] MEDS ORDERED: DEXILANT30 MG PO (07:21)
[2019-12-31] MEDS ORDERED: LASIX 20MG TABL20 MG PO (07:22)
--- NOTE | 2019-12-31 07:24 | NUR ---
PATIENT DID NOT BRING A LIST OF MEDS. PATIENT DID NOT KNOW HIS MEDS. MEDS LIST OBTAINED FROM DR JONES MED LIST FROM THE H&P. PATIENT STATED HE TOOK HIS MORNING MEDS AT 0600 THIS MORNING.
--- NOTE | 2019-12-31 07:28 | NUR ---
TO RM 7 AT 0645- CALL LIGHT IN REACH WILL NEED TO CALL FOR RIDE HOME
[2019-12-31 08:35] VITALS: BP 134/69; PULSE 62; TEMP 98.4
--- NOTE | 2019-12-31 08:35 | NUR ---
TO RM 7 PER CART FROM ENDOSCOPY. ALERT ORIENTED X3, TALKING WITH STAFF. C/O "SOME DISCOMFORT" OF RIGHT SIDE UP INTO THE SHOULDER. RESPIRATIONS EVEN AND LABORED ON ADMISSION.
[2019-12-31 08:50] VITALS: BP 150/56; PULSE 60
--- NOTE | 2019-12-31 08:50 | NUR ---
AMBULATED TO BATHROOM. VOIDED AND AMBULATED BACK TO .
[2019-12-31 09:05] VITALS: BP 138/57; PULSE 64
--- NOTE | 2019-12-31 09:05 | NUR ---
RECEIVED MUFFIN AND GRAPE JUICE.
--- NOTE | 2019-12-31 09:30 | NUR ---
CXR REPORT, NO PNEUMOTHORAX. DR FRANCIS CLEARED PATIENT TO GO HOME. RECEIVED DISCHARGE INSTRUCTIONS AND VERBALIZED UNDERSTANDING. PATIENT GETTING DRESSED AND CALLED FOR RIDE HOME.
--- NOTE | 2019-12-31 09:40 | NUR ---
DISCHARGED PER WC BY NURSING STAFF TO PRIVATE CAR IN CARE OF [place]ELLE.
[2019-12-31 10:21] LABS: PLEURAL FLUID RBC 17000 /mm3 (0-0); PLEURAL FLUID WBC 373 /mm3
[2019-12-31 10:25] LABS: PLEURAL FLUID COLOR OTHER
[2019-12-31 10:26] LABS: PLEURAL FLUID APPEARANCE HAZY; TOTAL PROTEIN,PLEURAL FLUID 2.4 gm/dL
== END 2019-12-31 09:50 | disposition home or self-care (01) ==
LOC: SDCO 06:41
PROVIDERS: Internal Medicine Pulmonary Disease
DX: J90 Pleural effusion, not elsewhere classified (principal); I10 Essential (primary) hypertension; E11.9 Type 2 diabetes mellitus without complications; J44.9 Chronic obstructive pulmonary disease, unspecified; G47.33 Obstructive sleep apnea (adult) (pediatric); I27.20 Pulmonary hypertension, unspecified; Z79.82 Long term (current) use of aspirin; Z79.02 Long term (current) use of antithrombotics/antiplatelets; Z88.0 Allergy status to penicillin; Z88.2 Allergy status to sulfonamides; Z79.899 Other long term (current) drug therapy
CPT/HCPCS: 19804

== ENCOUNTER 2020-01-28 07:35 | Outpatient (CLI) | payer MEDICARE, BC ==
[~2020-01-28] VITALS: Ht 170.2 cm; Wt 84.0 kg
[~2020-01-28 07:35] MED LIST changes: +BROVANA15 MCG/2 M IH; +LEVOXYL0.137 MG PO; +LIPITOR 40MG TA40 MG PO; +NORVASC 5MG5 MG/TAB PO; +PULMICORT0.25 MG/2 IH
[2020-01-28] MEDS ORDERED: LIPITOR20 MG PO (08:30)
[2020-01-28] MEDS ORDERED: OSCAL 500 TAB500 MG PO ×2 (08:31→08:32)
[2020-01-28] MEDS ORDERED: PEPCID AC 10MG10 MG PO (08:34)
[2020-01-28] MEDS ORDERED: APRESOLINE 10MG10 MG PO (08:36)
[2020-01-28] MEDS ORDERED: FLUTICASONE IH (08:36)
[2020-01-28] MEDS ORDERED: IMDUR 30MG30 MG/TAB PO (08:37)
[2020-01-28] MEDS ORDERED: CLARITIN 1010 MG/TAB PO (08:38)
[2020-01-28] MEDS ORDERED: LOPRESSOR100 MG PO (08:39)
[2020-01-28] MEDS ORDERED: NORVASC2.5 MG PO (08:40)
[2020-01-28] MEDS ORDERED: VITAMIN D250 MCG PO (08:41)
[2020-01-28 09:41] VITALS: BP 129/49; PULSE 53; TEMP 98.6
--- NOTE | 2020-01-28 09:51 | NUR ---
Pt arrived at [facility] via cart and this RN. Pt denies pain or nausea. Bandaid in place and clean, dry, and intact. Pt requests juice only. Pt ambulates to restroom with RN assist without complication.
--- NOTE | 2020-01-28 10:15 | NUR ---
Pt taking drink well. X-ray here for chest x-ray. No complaints from pt.
[2020-01-28 10:22] VITALS: BP 127/49; PULSE 54
--- NOTE | 2020-01-28 10:45 | NUR ---
Discharge instructions given to pt. All questions answered to his satisfaction. Handed to pt are a thank you card, discharge instructions, and procedural information.
--- NOTE | 2020-01-28 10:48 | NUR ---
Transfer pt from [facility] out of hospital via wheelchair and this RN to private vehicle driven by .
== END 2020-01-28 10:48 | disposition home or self-care (01) ==
LOC: SDCO 07:35
DX: J90 Pleural effusion, not elsewhere classified (principal); I10 Essential (primary) hypertension; E11.9 Type 2 diabetes mellitus without complications; J44.9 Chronic obstructive pulmonary disease, unspecified; G47.34 Idiopathic sleep related nonobstructive alveolar hypoventilation; J32.9 Chronic sinusitis, unspecified; I27.20 Pulmonary hypertension, unspecified; Z79.01 Long term (current) use of anticoagulants; Z88.0 Allergy status to penicillin; Z88.2 Allergy status to sulfonamides
CPT/HCPCS: 19804

== ENCOUNTER 2020-02-27 07:57 | Emergency (ER) | payer MEDICARE, BC ==
[~2020-02-27] VITALS: Ht 170.2 cm; Wt 84.1 kg
[~2020-02-27 07:57] MED LIST changes: +APRESOLINE 10MG10 MG PO; +FLUTICASONE IH; +OSCAL 500 TAB500 MG PO; +PEPCID AC 10MG10 MG PO; +VITAMIN D250 MCG PO
[2020-02-27 08:05] VITALS: TEMP 97.8
[2020-02-27 08:35] LABS: COLLECTION METHOD CLEAN CATCH
[2020-02-27 08:45] LABS: PH 6 (5-8); SQUAMOUS EPITHELIAL None Seen /hpf; URINE APPEARANCE Clear; URINE BACTERIA None Seen /hpf; URINE BILIRUBIN Negative (NEGATIVE); URINE BLOOD Negative (NEGATIVE); URINE COLOR Straw; URINE GLUCOSE Negative (NEGATIVE); URINE KETONE Negative (NEGATIVE); URINE LEUKOCYTE ESTERASE Negative (NEGATIVE); URINE NITRATE Negative (NEGATIVE); URINE PROTEIN(semi-quant) Negative (NEGATIVE); URINE RBC 0-2 /hpf; URINE UROBILINOGEN Negative (NEGATIVE)
[2020-02-27] MEDS ORDERED: NORCO 325 MG-51 TAB PO (09:18)
[2020-02-27 10:03] VITALS: BP 159/70; PULSE 59
[2020-02-27] MEDS ORDERED: FLEXERIL 1010 MG/TAB PO (12:11)
== END 2020-02-27 09:34 | disposition home or self-care (01) ==
LOC: COL.ER 07:57
PROVIDERS: Family Medicine
DX: S39.012A Strain of muscle, fascia and tendon of lower back, initial encounter (principal); I12.9 Hypertensive chronic kidney disease with stage 1 through stage 4 chronic kidney disease, or unspecified chronic kidney disease; N18.9 Chronic kidney disease, unspecified; E11.22 Type 2 diabetes mellitus with diabetic chronic kidney disease; J44.9 Chronic obstructive pulmonary disease, unspecified; M10.9 Gout, unspecified; E78.5 Hyperlipidemia, unspecified; I25.10 Atherosclerotic heart disease of native coronary artery without angina pectoris; Z87.442 Personal history of urinary calculi; Z95.5 Presence of coronary angioplasty implant and graft; Z86.79 Personal history of other diseases of the circulatory system; Z88.0 Allergy status to penicillin; Z88.2 Allergy status to sulfonamides; Z88.5 Allergy status to narcotic agent; Z79.02 Long term (current) use of antithrombotics/antiplatelets; Z79.51 Long term (current) use of inhaled steroids; Z79.82 Long term (current) use of aspirin; Z79.890 Hormone replacement therapy; X58.XXXA Exposure to other specified factors, initial encounter
CPT/HCPCS: J1885

== ENCOUNTER 2020-05-29 11:55 | Day surgery (SDC) | payer MEDICARE, BC ==
[~2020-05-29] VITALS: Ht 170.2 cm; Wt 99.5 kg
[2020-05-29] VITALS (9 sets, daily range): BP systolic 99–158; BP diastolic 52–79; PULSE 52–66; TEMP 98.4
[~2020-05-29 11:55] MED LIST changes: +FLEXERIL 1010 MG/TAB PO
[2020-05-29] MEDS ORDERED: FLONASE NASAL S16 GM NS (12:35)
[2020-05-29] MEDS ORDERED: IPRATROPIUM BROM3 M1 IH (12:36)
[2020-05-29 12:52] LABS: HEMATOCRIT 39.8 % (42.0-52.0); HEMOGLOBIN 12.4 g/dl (13.5-18.0); MEAN CELL VOLUME 85 fl (80.0-100.0); MEAN CORPUSCULAR HEMOGLOBIN 26 pg (27.0-31.0); MEAN CORPUSCULAR HGB CONC 31 g/dl (33.0-37.0); MEAN PLATELET VOLUME 9.4 fl (7.4-10.4); PLATELET COUNT 165 K/mm3 (130-400); REDCELL DISTRIBUTION WIDTH-CV 13.3 % (11.5-14.5)
[2020-05-29 13:09] LABS: PROTHROMBIN TIME 11.5 SECONDS (9.7-12.8)
[2020-05-29 13:11] LABS: CREATININE, serum 1.85 (0.66-1.25); PARTIAL THROMBOPLASTIN TIME 33.3 SECONDS (26.0-37.0)
[2020-05-29 13:18] LABS: POTASSIUM 5.9 mmol/L (3.4-5.0)
--- NOTE | 2020-05-29 14:45 | NUR ---
Report from Jair MAHAJAN. Transferred from Hammer Runner by bed. Alert and oriented, denies pain and needs at this time. Right Tband with 12 cc air CD&I, good pulses and cap refill < 3 secs noted. bedside. VSS.
--- NOTE | 2020-05-29 17:05 | NUR ---
Right tband released of 12 cc air and dressing applied. INT discontinued intact. Discharge instructions given.
--- NOTE | 2020-05-29 17:15 | NUR ---
Transferred to private car by radha
[2020-06-30] MEDS ORDERED: BROVANA15 MCG/2 M IH (10:42)
[2020-06-30] MEDS ORDERED: PULMICORT0.25 MG/2 IH (10:42)
[2020-06-30] MEDS ORDERED: MASON NATURAL2000 IU PO (10:43)
== END 2020-05-29 17:15 | disposition home or self-care (01) ==
LOC: COL.CAR 11:55
PROVIDERS: Internal Medicine Interventional Cardiology
DX: I25.10 Atherosclerotic heart disease of native coronary artery without angina pectoris (principal); R94.39 Abnormal result of other cardiovascular function study; I87.2 Venous insufficiency (chronic) (peripheral); I10 Essential (primary) hypertension; E78.5 Hyperlipidemia, unspecified; M10.9 Gout, unspecified
CPT/HCPCS: J1644; J1940; J2250; J3010; Q9967

== ENCOUNTER → 2020-06-30 | Outpatient (CLI) | payer MEDICARE, BC ==
[~2020-06-30] VITALS: Ht 170.2 cm; Wt 97.0 kg
[~2020-06-30] MED LIST changes: +FLONASE NASAL S16 GM NS
[2020-06-30 10:21] VITALS: BP 137/76; PULSE 68
--- NOTE | 2020-06-30 11:45 | NUR ---
Pt is in CT scanner, monitor on, Dr Catherine into talk to pt concerning biopsy of right lung nodule on size and discussed PET results, Dr told pt was hoping to talk to Dr Castro but unable to reach him, decided to postpone procedure at this time and was recommended followup CT to see if nodule will grow, pt will followup with Dr Castro. IV d'cd intact, talked to and pt discharged amb.
== END ==
LOC: COL.RAD 09:00
DX: R91.8 Other nonspecific abnormal finding of lung field (principal)

== ENCOUNTER 2021-08-20 12:46 | Emergency (ER) | payer MEDICARE, BC ==
[~2021-08-20] VITALS: Ht 170.2 cm; Wt 77.3 kg
[2021-08-20 12:56] VITALS: TEMP 98.1
[2021-08-20 14:19] VITALS: BP 160/79; PULSE 57
== END 2021-08-20 14:19 | disposition home or self-care (01) ==
LOC: COL.ER 12:46
DX: G56.01 Carpal tunnel syndrome, right upper limb (principal); Z88.6 Allergy status to analgesic agent; Z28.310 Unvaccinated for COVID-19

== ENCOUNTER 2023-02-02 13:10 | Observation (INO) | payer MEDICARE, BC ==
[~2023-02-02] VITALS: Ht 170.2 cm; Wt 95.5 kg
[~2023-02-02 13:10] MED LIST changes: +ASPIRIN 81M81 MG/TA2 PO; +CEPHALEXIN500 M1 PO; +ELIQUIS 5MG PO; +ENTRESTO 24 MG1 EACH PO; +JARDIANCE10 PO; +LOTRISONE 0.05%1 CRE TOP; +NAMENDA5 MG PO; +PACERONE400 MG PO; +SYNTHROID 0.10.15 MG PO; +VITAMIN B-12500 MC4 PO
[2023-02-02] MEDS ORDERED: CLEOCIN HCL300 MG PO (13:23)
[2023-02-02] MEDS ORDERED: LASIX 20MG TABL20 MG PO (13:23)
[2023-02-02 14:17] LABS: BASO # 0.1 K/mm3 (0.0-0.2); EOS # 0.1 K/mm3 (0.0-0.7); EOS % 1.9 % (0.0-4.0); GRAN # 3.7 K/mm3 (1.4-6.5); GRAN % 72.4 % (42.2-75.2); HEMOGLOBIN 10.4 g/dl (13.5-18.0); LYMPH # 0.7 K/mm3 (1.2-3.4); LYMPH % 13.7 % (20.0-51.0); MEAN CELL VOLUME 95 fl (80.0-100.0); MEAN CORPUSCULAR HEMOGLOBIN 30 pg (27-31); MEAN CORPUSCULAR HGB CONC 32 g/dl (33.0-37.0); MEAN PLATELET VOLUME 9.5 fl (7.4-10.4); MONO # 0.6 K/mm3 (0.1-0.6); MONO % 10.8 % (1.7-9.3); PLATELET COUNT 163 K/mm3 (130-400); RED BLOOD COUNT 3.45 M/mm3 (4.20-5.60); REDCELL DISTRIBUTION WIDTH-CV 13.9 % (11.5-14.5)
[2023-02-02 14:26] LABS: ERYTHROCYTE SEDIMENTATION RATE 5 mm/hr (0-30); HEMATOCRIT 32.9 % (42.0-52.0)
[2023-02-02 14:40] LABS: ALBUMIN 3.2 gm/dL (3.4-4.8); BILIRUBIN,TOTAL 0.7 mg/dL (0.2-1.2); C-REACTIVE PROTEIN 0.85 mg/dL (0.00-0.50); CALCIUM 8.4 mg/dL (8.4-10.2); CREATININE, serum 2.02 mg/dL (0.72-1.25); POTASSIUM 3.4 mmol/L (3.5-4.5); TOTAL PROTEIN 5.7 gm/dL (6.2-8.1)
[2023-02-02] MEDS ORDERED: CORDARONE200 MG/TAB PO (15:58)
[2023-02-02] MEDS ORDERED: NORVASC 5MG5 MG/TAB PO (16:02)
[2023-02-02 16:35] VITALS: BP 179/84; PULSE 70; TEMP 97.6
--- NOTE | 2023-02-02 17:49 | NUR ---
PATIENT ARRIVED TO UNIT AT 1600. ADMISSION DONE AND ASSESSMENT COMPLETE. PATIENT RESTING IN BED WATCHING TV WITH DAUGHTER AT BEDSIDE. FALL PRECAUTIONS IN PLACE AND CALL LIGHT IN REACH.
[2023-02-02 19:53] VITALS: BP 113/58; PULSE 69; TEMP 97.9
[2023-02-02 21:35] VITALS: BP_SYST 113
--- NOTE | 2023-02-02 22:14 | NUR ---
Pt doing okay at this time. Redness to his LLE has gone down from the isaac that was made this afternoon. Pt reports no pain at rest, but has complaints of burning when he puts weight on it to walk. Offered him a walker which he refused. Educated that it would help keep some of the weight off of his foot, pt stated he would be alright. Pts is at bedside. Pt alert and oriented and knows how to use the call light when needing to go to the bathroom. Explained potassium level and replacement, pt verbalized understanding. Assisted pt to the restroom and back to bed at this time. No other needs, will continue to monitor
[2023-02-02 23:42] VITALS: BP 115/65; PULSE 62; TEMP 98.2
[2023-02-03 00:39] VITALS: BP_SYST 115
[2023-02-03 03:32] VITALS: BP 135/67; PULSE 68; TEMP 98.3
[2023-02-03 04:53] VITALS: BP_SYST 135
--- NOTE | 2023-02-03 04:54 | NUR ---
Pt doing okay. He has been up several times to use the restroom. No needs at this time
[2023-02-03 06:33] LABS: BASO % 0.8 % (0.0-2.0); EOS # 0.1 K/mm3 (0.0-0.7); EOS % 1.5 % (0.0-4.0); GRAN # 3.3 K/mm3 (1.4-6.5); GRAN % 68.4 % (42.2-75.2); HEMATOCRIT 33.1 % (42.0-52.0); HEMOGLOBIN 10.9 g/dl (13.5-18.0); LYMPH # 0.9 K/mm3 (1.2-3.4); LYMPH % 18.1 % (20.0-51.0); MEAN CELL VOLUME 94 fl (80.0-100.0); MEAN CORPUSCULAR HEMOGLOBIN 31 pg (27-31); MEAN CORPUSCULAR HGB CONC 33 g/dl (33.0-37.0); MEAN PLATELET VOLUME 9.8 fl (7.4-10.4); MONO # 0.5 K/mm3 (0.1-0.6); PLATELET COUNT 154 K/mm3 (130-400); RED BLOOD COUNT 3.53 M/mm3 (4.20-5.60); REDCELL DISTRIBUTION WIDTH-CV 13.9 % (11.5-14.5)
[2023-02-03 06:49] LABS: ALBUMIN 3.1 gm/dL (3.4-4.8); CALCIUM 8.7 mg/dL (8.4-10.2); CREATININE, serum 1.97 mg/dL (0.72-1.25); MAGNESIUM 2.1 mg/dL (1.6-2.6); PHOSPHOROUS 2.7 mg/dL (2.3-4.7); POTASSIUM 4.1 mmol/L (3.5-4.5)
[2023-02-03 08:00] VITALS: BP_SYST 148
[2023-02-03 08:13] VITALS: BP 148/82; PULSE 59; TEMP 97.9
--- NOTE | 2023-02-03 09:13 | NUR ---
Initial visit; Patient isn't comfortable with being in the hospital and is making it known to his and daughter and Wind Turbine Mechanic. Wind Turbine Mechanic Replied that no one wants to say here and Wind Turbine Mechanic can asssure him that as soon as he has been treated for whatever brought him here and it's safe for him to go home our Physicians will see that he is 'Discharged.' Neanwhile, Wind Turbine Mechanic wishes him a good stay and a Happy, Healthy New Year to him and his family.
[2023-02-03] MEDS ORDERED: LIPITOR20 MG PO (10:40)
[2023-02-03] MEDS ORDERED: DOXYCYCLINE 10100 MG PO (11:19)
--- NOTE | 2023-02-03 15:04 | NUR ---
Aircraft Instrument Tester met briefly with patient, his , and daughter at bedside. Patient stated he is leaving today and had no concerns. Patient is established with Home Health and would like to continue with their services. Patient has DPOA-HC designating his daughter, Nalini as primary agent. NAHEED contacted Sebastian at [facility] and faxed referral with discharge orders. Discharge Plan: Home with [facility]
== END 2023-02-03 12:36 | disposition home or self-care (01) ==
LOC: COL.ER 13:10 → MEDICAL 15:37
PROVIDERS: Emergency Medicine; ADMIT Internal Medicine
DX: L03.116 Cellulitis of left lower limb (principal); R60.0 Localized edema; I48.91 Unspecified atrial fibrillation; N18.30 Chronic kidney disease, stage 3 unspecified; E78.5 Hyperlipidemia, unspecified; E03.9 Hypothyroidism, unspecified; I73.9 Peripheral vascular disease, unspecified; R53.81 Other malaise; E66.01 Morbid (severe) obesity due to excess calories; F03.90 Unspecified dementia, unspecified severity, without behavioral disturbance, psychotic disturbance, mood disturbance, and anxiety; Z79.890 Hormone replacement therapy; Z79.899 Other long term (current) drug therapy; Z79.82 Long term (current) use of aspirin
CPT/HCPCS: G0378; J0692

== ENCOUNTER 2023-06-05 16:45 | Emergency (ER) | payer MEDICARE, BC ==
[~2023-06-05] VITALS: Ht 170.2 cm; Wt 82.3 kg
[~2023-06-05 16:45] MED LIST changes: +CLEOCIN HCL300 MG PO; +CORDARONE200 MG/TAB PO; +K-TAB20 PO; +LASIX 40MG TABL40 MG PO; +LASIX 80MG TABL80 MG PO; +PROZAC 10MG10 MG PO
[2023-06-05 16:52] VITALS: TEMP 97.9
[2023-06-05 19:19] LABS: BASO # 0.1 K/mm3 (0.0-0.2); BASO % 0.9 % (0.0-2.0); EOS # 0.1 K/mm3 (0.0-0.7); EOS % 1.9 % (0.0-4.0); GRAN % 74.6 % (42.2-75.2); HEMOGLOBIN 11.6 g/dl (13.5-18.0); LYMPH # 0.8 K/mm3 (1.2-3.4); LYMPH % 14.2 % (20.0-51.0); MEAN CELL VOLUME 91 fl (80.0-100.0); MEAN CORPUSCULAR HEMOGLOBIN 29 pg (27-31); MEAN CORPUSCULAR HGB CONC 32 g/dl (33.0-37.0); MEAN PLATELET VOLUME 9.7 fl (7.4-10.4); MONO # 0.5 K/mm3 (0.1-0.6); MONO % 8.4 % (1.7-9.3); PLATELET COUNT 154 K/mm3 (130-400); RED BLOOD COUNT 4.02 M/mm3 (4.20-5.60); REDCELL DISTRIBUTION WIDTH-CV 14.5 % (11.5-14.5)
[2023-06-05 19:21] LABS: HEMATOCRIT 36.4 % (42.0-52.0)
[2023-06-05] MEDS ORDERED: Acetaminophen 325 MG TAB PO ONE (20:15)
[2023-06-05 20:28] VITALS: BP 125/69; PULSE 58
== END 2023-06-05 20:30 | disposition home or self-care (01) ==
LOC: COL.ER 16:45
PROVIDERS: Nurse Practitioner Primary Care
DX: M79.662 Pain in left lower leg (principal)

== ENCOUNTER 2023-10-25 13:39 | Inpatient (IN) | payer MEDICARE, BC ==
[~2023-10-25] VITALS: Ht 170.2 cm; Wt 75.2 kg
[2023-10-25] VITALS (126 sets, daily range): BP systolic 90–108; BP diastolic 41–69; PULSE 45–63; TEMP 97.4–98.1; O2SAT 80–100
[~2023-10-25 13:39] MED LIST changes: -LASIX 80MG TABL80 MG PO
[2023-10-25] MEDS ORDERED: NS 1,000 ML IV ONE (14:30)
[2023-10-25 14:41] LABS: BASO % 0.2 % (0.0-2.0); EOS # 0.1 K/mm3 (0.0-0.7); EOS % 1.2 % (0.0-4.0); GRAN # 4.8 K/mm3 (1.4-6.5); GRAN % 80.6 % (42.2-75.2); LYMPH # 0.6 K/mm3 (1.2-3.4); LYMPH % 10.2 % (20.0-51.0); MEAN CELL VOLUME 88 fl (80.0-100.0); MEAN CORPUSCULAR HGB CONC 28 g/dl (33.0-37.0); MEAN PLATELET VOLUME 10.5 fl (7.4-10.4); MONO # 0.4 K/mm3 (0.1-0.6); MONO % 7.3 % (1.7-9.3); PLATELET COUNT 221 K/mm3 (130-400); RED BLOOD COUNT 1.91 M/mm3 (4.20-5.60); REDCELL DISTRIBUTION WIDTH-CV 14.3 % (11.5-14.5)
[2023-10-25 14:48] LABS: HEMOGLOBIN 4.7 g/dl (13.5-18.0); MEAN CORPUSCULAR HEMOGLOBIN 25 pg (27-31)
[2023-10-25 14:49] LABS: HEMATOCRIT 16.8 % (42.0-52.0)
[2023-10-25 14:54] LABS: ALBUMIN 3.2 g/dL (3.4-4.8); BILIRUBIN,TOTAL 0.8 mg/dL (0.2-1.2); CALCIUM 8.6 mg/dL (8.4-10.2); CREATININE, serum 4.93 mg/dL (0.72-1.25); POTASSIUM 4.5 mEq/L (3.5-4.5)
[2023-10-25 15:00] LABS: TROPONIN-I 0.011 ng/mL (0.00-0.033)
[2023-10-25 15:23] LABS: COLLECTION METHOD CLEAN CATCH
[2023-10-25 15:28] LABS: URINE APPEARANCE CLEAR (CLEAR/HAZY); URINE BLOOD NEGATIVE (NEGATIVE); URINE COLOR YELLOW (YELLOW); URINE GLUCOSE NEGATIVE (NEGATIVE); URINE KETONE NEGATIVE (NEGATIVE); URINE NITRATE NEGATIVE (NEGATIVE); URINE PROTEIN(semi-quant) NEGATIVE (NEGATIVE)
--- NOTE | 2023-10-25 19:00 | NUR ---
PT RECEIVED FROM ER VIA STRETCHER. BROUGHT TO ROOM BY ZAINA FENTON. PRBCS INFUSING TO 20G R A/C. PT'S DAUGHTER AND AT BEDSIDE. CONNECTED TO ICU MONITORING AND 2L O2 VIA NC. POLICIES AND POC REVIEWED WITH PT AND FAMILY. PT HAS PHONE AND GANG MINER AT BEDSIDE.
[2023-10-25] MEDS ORDERED: *Potassium Replacement Protocol MC SCH (19:15)
--- NOTE | 2023-10-25 21:04 | NUR ---
RECIEVED REPORT FROM RUBEN BRUMFIELD DATABASE MANAGEMENT SYSTEM SPECIALIST. PATIENT LAYING IN BED, ALERT AND CALM. FAMILY AT BEDSIDE. PERIPHERAL IV IN RIGHT AC. CALL LIGHT WITHIN REACH. NO ACUTE EVENTS.
[2023-10-26] VITALS (775 sets, daily range): BP systolic 96–110; BP diastolic 40–88; PULSE 44–63; TEMP 97.7–98.6; O2SAT 81–100
[2023-10-26 01:15] LABS: BASO % 0.3 % (0.0-2.0); EOS # 0.1 K/mm3 (0.0-0.7); EOS % 1.4 % (0.0-4.0); GRAN # 4.6 K/mm3 (1.4-6.5); GRAN % 78.1 % (42.2-75.2); LYMPH # 0.7 K/mm3 (1.2-3.4); LYMPH % 11.1 % (20.0-51.0); MEAN CELL VOLUME 84 fl (80.0-100.0); MEAN CORPUSCULAR HGB CONC 32 g/dl (33.0-37.0); MEAN PLATELET VOLUME 9.9 fl (7.4-10.4); MONO # 0.5 K/mm3 (0.1-0.6); MONO % 8.6 % (1.7-9.3); PLATELET COUNT 198 K/mm3 (130-400); RED BLOOD COUNT 2.35 M/mm3 (4.20-5.60); REDCELL DISTRIBUTION WIDTH-CV 14.5 % (11.5-14.5)
[2023-10-26 01:20] LABS: HEMATOCRIT 19.7 % (42.0-52.0); HEMOGLOBIN 6.2 g/dl (13.5-18.0); MEAN CORPUSCULAR HEMOGLOBIN 26 pg (27-31)
[2023-10-26 05:39] LABS: BASO % 0.5 % (0.0-2.0); EOS # 0.1 K/mm3 (0.0-0.7); EOS % 0.8 % (0.0-4.0); GRAN # 4.5 K/mm3 (1.4-6.5); GRAN % 74.3 % (42.2-75.2); LYMPH % 15.7 % (20.0-51.0); MEAN CELL VOLUME 85 fl (80.0-100.0); MEAN CORPUSCULAR HGB CONC 31 g/dl (33.0-37.0); MEAN PLATELET VOLUME 10.1 fl (7.4-10.4); MONO # 0.5 K/mm3 (0.1-0.6); MONO % 8.4 % (1.7-9.3); PLATELET COUNT 217 K/mm3 (130-400); RED BLOOD COUNT 2.66 M/mm3 (4.20-5.60); REDCELL DISTRIBUTION WIDTH-CV 14.6 % (11.5-14.5)
[2023-10-26 05:50] LABS: HEMATOCRIT 22.5 % (42.0-52.0); MEAN CORPUSCULAR HEMOGLOBIN 26 pg (27-31)
[2023-10-26 05:58] LABS: CALCIUM 8.2 mg/dL (8.4-10.2); CREATININE, serum 4.74 mg/dL (0.72-1.25); MAGNESIUM 2.4 mg/dL (1.6-2.6); POTASSIUM 4.5 mEq/L (3.5-4.5)
--- NOTE | 2023-10-26 07:20 | NUR ---
PT LAYING IN BED UPON ENTERING AND DENIES NEEDS OR PAIN.
--- NOTE | 2023-10-26 09:00 | NUR ---
PT LAYING IN BED UPON ENTERING, DAUGHTER AT BEDSIDE. PT AND FAMILY UPDATED ON PLAN FOR THE DAY AND VERBALIZED UNDERSTANDING, ALL QUESTIONS ANSWERED. PT DENIES NEEDS. BED IN LOWEST POSITION, CALL LIGHT IN REACH, BED ALARM ON
--- NOTE | 2023-10-26 10:09 | NUR ---
Initial visit; Patient thanked Package Lift Operator for looking in on him though he states he has no Spiritual Care needs at this time. Package Lift Operator wished him well.
--- NOTE | 2023-10-26 11:31 | NUR ---
DR ZELAYA NOTIFIED THAT PT IS OKAY WITH PROCEDURE TOMORROW. CLEAR LIQUIDS STARTING AT LUNCH.
[2023-10-26] MEDS ORDERED: Ondansetron 4 MG/2 ML VIAL IV PRN (11:45)
[2023-10-26] MEDS ORDERED: LR 1,000 ML IV SCH (12:45)
--- NOTE | 2023-10-26 14:36 | NUR ---
Biodiesel Production Associate met with patient and his daughter/DPOA, Nalini (ph#[phone]) to discuss discharge planning. Patient lives in [place] with his , Oliva (ph#[phone]) and sees Dr. Herrera for primary care. Patient gets his [facility] from [facility] and has a rollator available at home. Patient is normally independent with ADLS up until this weekend. Patient does not drive and relies on family for transportation. Patient has DPOA-HC in EMR which designates Nalini. Patient plans to return home at time of discharge. Nalini advised if patient needs HH, they have used [facility] in the past. Discharge Plan: Home, possible HH
[2023-10-26] MEDS ORDERED: PEG3350/Sod Sulf,Bicarb,Cl/KCl Oral Soln 4,000 ML Bottle PO SCH (16:00)
--- NOTE | 2023-10-26 16:30 | NUR ---
MARKELL ARRIVED TO UNIT AWAKE AND ALERT, PATIENTS DAUGHTER AT BEDSIDE. CALL LIGHT WITHIN REACH. FALL PRECAUTIONS PLACED, PATIENT BED ALARM ON. MARKELL DENIES ANY NEEDS OR COMPLAITNS AT THIS TIME. BOWEL PREP INITATED
--- NOTE | 2023-10-26 16:50 | NUR ---
PT AND BELONGINGS TRANFERRED TO ROOM 356 VIA BED. ZAINA GLOVER AT BEDSIDE. DAUGHTER AT BEDSIDE. PT DENIES NEEDS.
[2023-10-26 17:51] LABS: HEMATOCRIT 26.2 % (42.0-52.0); HEMOGLOBIN 8.3 g/dl (13.5-18.0)
--- NOTE | 2023-10-26 21:49 | NUR ---
PATIENT ASSISTED TO BEDSIDE COMMODE. STAYING AT BEDSIDE FOR THE NIGHT. HE IS PARTIALLY ORIENTED. HAS BEEN COMPLIANT WITH HIS BOWEL PREP. PRESENTLY STABLE ON ROOM AIR. RETURNED TO BED. CALL LIGHT IN REACH. BED IS LOCKED AND IN LOW POSITION.
[2023-10-27] VITALS (12 sets, daily range): BP systolic 94–124; BP diastolic 47–67; PULSE 55–71; TEMP 98–99.3
--- NOTE | 2023-10-27 00:20 | NUR ---
AT THIS TIME, PATIENT HAS APPROXIMATELY HALF OF HIS ORDERED BOWEL PREP LEFT TO DRINK. STATES HE IS TRYING TO DRINK IT BUT IT'S TOO MUCH. HE HAS BEEN HAVING SEVERAL LIQUID BOWEL MOVEMENTS. AGAIN ENCOURAGED HIM TO CONTINUE WORKING ON HIS PREP AND DO HIS BEST IT IS IMPORTANT THAT HE BE COMPLETELY CLEARED OUT FOR HIS PROCEDURE.
[2023-10-27] MEDS ORDERED: Lidocaine PF 2% (20 MG/ML) 5 ML VIAL ONE (06:56)
--- NOTE | 2023-10-27 07:00 | NUR ---
PATIENT TAKEN TO ENDO FOR EGD/COLON. PATIENT LEFT AWAKE ALERT AND IN STABLE CONDITION. PATINETS FOLLOWED PATIENT DOWN.
[2023-10-27 09:11] LABS: BASO % 0.5 % (0.0-2.0); EOS # 0.1 K/mm3 (0.0-0.7); EOS % 1.5 % (0.0-4.0); GRAN # 6.8 K/mm3 (1.4-6.5); GRAN % 78.7 % (42.2-75.2); LYMPH # 0.7 K/mm3 (1.2-3.4); MEAN CELL VOLUME 89 fl (80.0-100.0); MEAN CORPUSCULAR HGB CONC 31 g/dl (33.0-37.0); MEAN PLATELET VOLUME 9.2 fl (7.4-10.4); PLATELET COUNT 221 K/mm3 (130-400); RED BLOOD COUNT 3.12 M/mm3 (4.20-5.60); REDCELL DISTRIBUTION WIDTH-CV 15.1 % (11.5-14.5)
--- NOTE | 2023-10-27 09:11 | NUR ---
This [employer] student nurse received report from primary day nurse Cheri. Massiel returned from procedure alert and awake, with LR running into left forearm IV, vitals machine hooked up to patient. Daughter and present in room.
[2023-10-27 09:12] LABS: HEMATOCRIT 27.6 % (42.0-52.0); HEMOGLOBIN 8.5 g/dl (13.5-18.0); MEAN CORPUSCULAR HEMOGLOBIN 27 pg (27-31)
[2023-10-27 09:39] LABS: ALBUMIN 2.8 g/dL (3.4-4.8); CALCIUM 8.2 mg/dL (8.4-10.2); CREATININE, serum 3.74 mg/dL (0.72-1.25); MAGNESIUM 2.4 mg/dL (1.6-2.6); PHOSPHOROUS 3.1 mg/dL (2.3-4.7)
--- NOTE | 2023-10-27 13:37 | NUR ---
This student nurse reported off to primary nurse Lorna. Patient is sitting in recliner with call light within reach he is awake and alert. Lunch tray sitting in front of patient.
--- NOTE | 2023-10-27 14:33 | NUR ---
NAHEED recieved response from [facility] accepting patient. Discharge plan: Home with
--- NOTE | 2023-10-27 14:40 | NUR ---
PATIENT ARRIVED FROM PACU AWAKE ALERT AND ORIENTED. PATIENT DENIES ANY NEEDS OR COMPLAINTS AT THIS TIME. PATIENT IS SLEEY ON PRESENTATION BUT AROUSES TO NAME. JANNETH LIGHT WITHIN REACH, POST OP VITALS STABLE, PATIENTS FAMILY AT BEDSIDE, FALL PRECAUTIONS IN PLACE.
--- NOTE | 2023-10-27 19:23 | NUR ---
KARTHIKEYAN WALTON CALLED AND INFORMED PATIENT FAMILY REQUESTING PATIENT TO HAVE A DIET CHANGE FOR TOMORROW, KARTHIEKYAN WALTON TO PASS THIS ALONG TO AM TEAM. Aman ALSO INFORMED PATIENT DAUGHTER VOICING CONCERS THAT PATIENTS HOME MEDCIATIONS HAVE NOT BEEN RESUMED,INCLUDING AMIODARONE. MD TO LOOK INTO THIS. KARTHIKEYAN RN AND PATIENT FAMILY INFORMED.
[2023-10-27] MEDS ORDERED: Atorvastatin 40 MG TAB PO SCH (21:00)
[2023-10-28 03:44] VITALS: BP 114/59; PULSE 67; TEMP 99.1
[2023-10-28 08:00] LABS: BASO % 0.4 % (0.0-2.0); EOS # 0.1 K/mm3 (0.0-0.7); EOS % 1.6 % (0.0-4.0); GRAN # 5.4 K/mm3 (1.4-6.5); GRAN % 76.3 % (42.2-75.2); LYMPH # 0.8 K/mm3 (1.2-3.4); LYMPH % 10.9 % (20.0-51.0); MEAN CELL VOLUME 87 fl (80.0-100.0); MEAN CORPUSCULAR HGB CONC 31 g/dl (33.0-37.0); MEAN PLATELET VOLUME 9.3 fl (7.4-10.4); MONO # 0.7 K/mm3 (0.1-0.6); MONO % 10.5 % (1.7-9.3); PLATELET COUNT 210 K/mm3 (130-400); RED BLOOD COUNT 2.86 M/mm3 (4.20-5.60); REDCELL DISTRIBUTION WIDTH-CV 15.2 % (11.5-14.5)
[2023-10-28 08:02] LABS: HEMATOCRIT 24.9 % (42.0-52.0); HEMOGLOBIN 7.8 g/dl (13.5-18.0); MEAN CORPUSCULAR HEMOGLOBIN 27 pg (27-31)
[2023-10-28 08:20] VITALS: BP 104/53; PULSE 57; TEMP 99.6
[2023-10-28 08:25] LABS: ALBUMIN 2.6 g/dL (3.4-4.8); CALCIUM 8.1 mg/dL (8.4-10.2); CREATININE, serum 3.33 mg/dL (0.72-1.25); MAGNESIUM 2.3 mg/dL (1.6-2.6); PHOSPHOROUS 2.7 mg/dL (2.3-4.7); POTASSIUM 3.8 mEq/L (3.5-4.5)
[2023-10-28] MEDS ORDERED: Amiodarone 200 MG TAB PO SCH (09:00)
[2023-10-28] MEDS ORDERED: Iron Sucrose 200 MG in NS 100 ML Over 15 minutes IV SCH (11:00)
[2023-10-28 11:44] VITALS: BP 105/52; PULSE 60; TEMP 98.3
[2023-10-28 15:22] VITALS: BP 101/55; PULSE 61; TEMP 98.2
[2023-10-28 19:28] VITALS: BP 115/62; PULSE 67; TEMP 98.6
[2023-10-28 23:34] VITALS: BP 117/52; PULSE 59; TEMP 98.4
[2023-10-29] MEDS ORDERED: Ipratropium 0.02% Neb Soln 0.5 MG/2.5 ML UD IH ONE (01:40)
[2023-10-29 03:58] VITALS: BP 109/67; PULSE 63; TEMP 98.7
[2023-10-29 06:39] LABS: BASO % 0.4 % (0.0-2.0); EOS # 0.1 K/mm3 (0.0-0.7); EOS % 1.3 % (0.0-4.0); GRAN # 5.8 K/mm3 (1.4-6.5); GRAN % 80.3 % (42.2-75.2); LYMPH # 0.5 K/mm3 (1.2-3.4); LYMPH % 6.9 % (20.0-51.0); MEAN CELL VOLUME 88 fl (80.0-100.0); MEAN CORPUSCULAR HGB CONC 31 g/dl (33.0-37.0); MEAN PLATELET VOLUME 9.2 fl (7.4-10.4); MONO # 0.8 K/mm3 (0.1-0.6); PLATELET COUNT 218 K/mm3 (130-400); RED BLOOD COUNT 2.88 M/mm3 (4.20-5.60); REDCELL DISTRIBUTION WIDTH-CV 15.2 % (11.5-14.5)
[2023-10-29 06:40] LABS: HEMATOCRIT 25.2 % (42.0-52.0); HEMOGLOBIN 7.9 g/dl (13.5-18.0); MEAN CORPUSCULAR HEMOGLOBIN 27 pg (27-31)
[2023-10-29 07:00] LABS: ALBUMIN 2.6 g/dL (3.4-4.8); CALCIUM 8.1 mg/dL (8.4-10.2); CREATININE, serum 2.89 mg/dL (0.72-1.25); MAGNESIUM 2.3 mg/dL (1.6-2.6); PHOSPHOROUS 2.8 mg/dL (2.3-4.7); POTASSIUM 3.8 mEq/L (3.5-4.5)
[2023-10-29 07:29] VITALS: BP 115/56; PULSE 63; TEMP 98.8
--- NOTE | 2023-10-29 09:40 | NUR ---
Assessment completed. A/O x4. Pt reports a new productive cough today with white thick sputum. Respirations labored and patient reports SOA. O2 3L/NC. Reports bilateral shoulder pain 06/15. Request more to eat other than clear liquids. Dr. Lucio notified of patient request for advancement in diet and new c/o cough/SOA. New orders received.
--- NOTE | 2023-10-29 09:45 | NUR ---
Assessment completed. A/O x4. Pt reports a new productive cough today with white thick sputum. Respirations labored and patient reports SOA. O2 3L/NC. Reports bilateral shoulder pain 06/15. Request more to eat other than clear liquids. Dr. Lucio notified of patient request for advancement in diet and new c/o cough/SOA. New orders received. Fall precautions in place. at bedside.
[2023-10-29] MEDS ORDERED: Acetaminophen 325 MG TAB PO PRN (10:00)
[2023-10-29] MEDS ORDERED: Doxycycline Monohydrate 100 MG CAP PO SCH (11:04)
[2023-10-29] MEDS ORDERED: Albuterol/Ipratropium 3 MG-0.5 MG/3 ML Neb Soln IH PRN (11:15)
[2023-10-29] MEDS ORDERED: cefTRIAXone 1 G in Water For Injection,Sterile 10 ML IV SCH (11:15)
[2023-10-29 11:17] VITALS: BP 107/62; PULSE 63; TEMP 98.1
--- NOTE | 2023-10-29 12:00 | NUR ---
Tylenol administered po for c/o pain. Diet advanced to GERD/[place]. Notified Respiratory Therapy of new orders for nebs and IS. Assisted patient to chair x1. Encouraged patient to sit in chair for all meals and to ambulate in the hallway later today. Pt pleasant and cooperative. still at bedside.
[2023-10-29] MEDS ORDERED: Albuterol/Ipratropium 3 MG-0.5 MG/3 ML Neb Soln IH SCH (14:00)
[2023-10-29 15:43] VITALS: BP 107/63; PULSE 68; TEMP 98
--- NOTE | 2023-10-29 18:23 | NUR ---
Pt denies pain. Sat up in chair for lunch and dinner. Ambulated in thrasher x1 assist this evening. Tolerated fair- patient reports feeling tired once returned to room. O2 weaned to 1.5L/NC. Reports less productive cough then he had this am. Denies pain or needs. Fall precautions in place. and daughter at bedside.
[2023-10-29 21:01] VITALS: BP 98/56; PULSE 60; TEMP 98.2
[2023-10-30 00:16] VITALS: BP 103/52; PULSE 61; TEMP 97.9
[2023-10-30 03:38] VITALS: BP 106/56; PULSE 70; TEMP 98.4
[2023-10-30 06:11] LABS: BASO % 0.3 % (0.0-2.0); EOS # 0.1 K/mm3 (0.0-0.7); EOS % 2.1 % (0.0-4.0); GRAN # 5.2 K/mm3 (1.4-6.5); GRAN % 78.8 % (42.2-75.2); LYMPH # 0.6 K/mm3 (1.2-3.4); LYMPH % 9.4 % (20.0-51.0); MEAN CELL VOLUME 90 fl (80.0-100.0); MEAN CORPUSCULAR HGB CONC 30 g/dl (33.0-37.0); MEAN PLATELET VOLUME 9.6 fl (7.4-10.4); MONO # 0.6 K/mm3 (0.1-0.6); MONO % 9.1 % (1.7-9.3); PLATELET COUNT 211 K/mm3 (130-400); RED BLOOD COUNT 2.89 M/mm3 (4.20-5.60); REDCELL DISTRIBUTION WIDTH-CV 15.6 % (11.5-14.5)
[2023-10-30 06:34] LABS: ALBUMIN 2.5 g/dL (3.4-4.8); CALCIUM 8.3 mg/dL (8.4-10.2); CREATININE, serum 3.05 mg/dL (0.72-1.25); MAGNESIUM 2.3 mg/dL (1.6-2.6); PHOSPHOROUS 2.9 mg/dL (2.3-4.7); POTASSIUM 4.2 mEq/L (3.5-4.5)
[2023-10-30 06:35] LABS: HEMATOCRIT 26.1 % (42.0-52.0); HEMOGLOBIN 7.7 g/dl (13.5-18.0); MEAN CORPUSCULAR HEMOGLOBIN 27 pg (27-31)
[2023-10-30 08:25] VITALS: BP 93/54; PULSE 59; TEMP 98.6
--- NOTE | 2023-10-30 08:55 | NUR ---
Patient sitting up in chair, alert and orinted x2, finishing his breakfast. Daughter at bedside. Assessment completed, meds given. No further needs at this time. Call light within reach.
[2023-10-30] MEDS ORDERED: MONODOX100 PO (09:49)
[2023-10-30] MEDS ORDERED: Iron Sucrose 300 MG in NS 250 ML Over 90 Minutes IV SCH (10:30)
[2023-10-30 12:23] VITALS: BP 95/54; PULSE 56; TEMP 98.4
--- NOTE | 2023-10-30 14:44 | NUR ---
janitorial maintenance worker was informed pt can likely discharge today. NAHEED attempted to complete IM from Medicare, but pt was soundly sleeping. NAHEED was later informed by RN and PA that pt has an IPR screen in and might not discharge. NAHEED made sure IPR Director Nilsa was aware of referral. NAHEED faxed updates to [facility]. Discharge Plan: IPR vs Home Health
[2023-10-30 15:19] VITALS: BP 97/58; PULSE 58; TEMP 98
[2023-10-30 19:41] VITALS: BP 106/54; PULSE 62; TEMP 98
[2023-10-31] VITALS: BP 101/55; PULSE 60; TEMP 98.5
[2023-10-31 03:30] VITALS: BP 124/71; PULSE 66; TEMP 98.5
[2023-10-31 07:09] LABS: BASO % 0.7 % (0.0-2.0); EOS # 0.2 K/mm3 (0.0-0.7); EOS % 2.6 % (0.0-4.0); GRAN # 4.3 K/mm3 (1.4-6.5); GRAN % 75.6 % (42.2-75.2); LYMPH # 0.6 K/mm3 (1.2-3.4); MEAN CELL VOLUME 88 fl (80.0-100.0); MEAN CORPUSCULAR HGB CONC 31 g/dl (33.0-37.0); MEAN PLATELET VOLUME 9.3 fl (7.4-10.4); MONO # 0.6 K/mm3 (0.1-0.6); MONO % 9.6 % (1.7-9.3); PLATELET COUNT 207 K/mm3 (130-400); REDCELL DISTRIBUTION WIDTH-CV 15.7 % (11.5-14.5)
[2023-10-31 07:17] LABS: HEMATOCRIT 25.4 % (42.0-52.0); HEMOGLOBIN 7.8 g/dl (13.5-18.0); MEAN CORPUSCULAR HEMOGLOBIN 27 pg (27-31)
[2023-10-31 07:26] LABS: CALCIUM 8.4 mg/dL (8.4-10.2); CREATININE, serum 2.92 mg/dL (0.72-1.25); POTASSIUM 3.9 mEq/L (3.5-4.5)
[2023-10-31 07:51] VITALS: BP 108/58; PULSE 64; TEMP 98.8
--- NOTE | 2023-10-31 07:56 | NUR ---
PATIENT 92% ON 1 LPM, BS CLEAR, NPC. RT TX ADRIEN WELL VIA MK TX.
--- NOTE | 2023-10-31 10:52 | NUR ---
PT ACCEPTED TO IPR AND WILL TRANSFER WHEN READY.
[2023-10-31 10:55] VITALS: BP 108/61; PULSE 67; TEMP 98.9
--- NOTE | 2023-10-31 12:24 | NUR ---
poultry offal worker was informed pt was accepted to IPR. SW informed [facility] NAHEED Arellano that pt already has home health arranged upon discharge from unit. Discharge Plan: IPR
--- NOTE | 2023-10-31 12:55 | NUR ---
REPORT TO ISA MAHAJAN. TRANSFERED PT TO RM 338 ON IPR AT THIS TIME. DAUGHTER AWARE.
== END 2023-10-31 12:57 | DRG 377 ==
LOC: COL.ER 13:39 → ICU 15:50 → MEDICAL 15:50
PROVIDERS: Family Medicine; Internal Medicine; Internal Medicine Gastroenterology; Physician Assistant; ADMIT Internal Medicine
PROC: 0W3P8ZZ Control Bleeding in Gastrointestinal Tract, Via Natural or Artificial Opening Endoscopic (ICD-10-PCS; principal; 2023-10-25)
PROC: 0DB68ZX Excision of Stomach, Via Natural or Artificial Opening Endoscopic, Diagnostic (ICD-10-PCS; 2023-10-25)
PROC: 0DBK8ZZ Excision of Ascending Colon, Via Natural or Artificial Opening Endoscopic (ICD-10-PCS; 2023-10-25)
DX: K31.811 Angiodysplasia of stomach and duodenum with bleeding (principal); J96.01 Acute respiratory failure with hypoxia; D62 Acute posthemorrhagic anemia; N17.9 Acute kidney failure, unspecified; N18.4 Chronic kidney disease, stage 4 (severe); I48.91 Unspecified atrial fibrillation; I25.10 Atherosclerotic heart disease of native coronary artery without angina pectoris; Z95.5 Presence of coronary angioplasty implant and graft; Z86.73 Personal history of transient ischemic attack (TIA), and cerebral infarction without residual deficits; E03.9 Hypothyroidism, unspecified; E78.5 Hyperlipidemia, unspecified; F03.90 Unspecified dementia, unspecified severity, without behavioral disturbance, psychotic disturbance, mood disturbance, and anxiety; K29.71 Gastritis, unspecified, with bleeding; K64.1 Second degree hemorrhoids
CPT/HCPCS: A9284; J0696; J1756; J2704; J7030; J7050; P9016; Q3014

== ENCOUNTER 2023-10-31 11:07 | Inpatient (IN) | payer MEDICARE, BC ==
[~2023-10-31] VITALS: Ht 170.2 cm; Wt 84.2 kg
[~2023-10-31 11:07] MED LIST changes: +MONODOX100 PO
[2023-10-31] MEDS ORDERED: Naloxone 0.4 MG/ML VIAL IV PRN (13:15)
[2023-10-31] MEDS ORDERED: Acetaminophen 325 MG TAB PO PRN (13:15)
[2023-10-31] MEDS ORDERED: Docusate Sodium 100 MG CAP PO PRN (13:15)
[2023-10-31] MEDS ORDERED: Sennosides/Docusate 8.6-50 MG TAB PO PRN (13:15)
[2023-10-31] MEDS ORDERED: Polyethylene Glycol 3350 17 GM PDS PO PRN (13:15)
--- NOTE | 2023-10-31 16:13 | NUR ---
Patient back into the room. HAs been working with therapy. Sitting in the recliner with daughter at the bedside. A&O. VSS. Denies pain and discomfort. Nurse oriented the patient to location, room and call light. Call light within reach. Chair alarm on
[2023-10-31 17:12] VITALS: BP 113/44; PULSE 71; TEMP 97.5
--- NOTE | 2023-10-31 17:23 | NUR ---
coal chute worker met with patient and his daughter/DPOA-HC, Nalini, P# [phone], to welcome patient to IPR and complete assessment. Patient lives in [place] with his , Oliva, P# [phone]. PCP is Dr. Herrera, Pharmacy is [facility]. No issues affording medications. Insurance is Medicare A and B and BCBS Federal. DPOA-HC is on the EMR listing Nalini as primary and Tamar as secondary. DME is rollator walker and had a bipap but it does not work well so they were working on getting a sleep study completed to get a new one. Nalini reports patent needs some assistance with ADLS but mostly he is able to complete them on his own. Patient does not have any stairs in his home. SW discussed transporation, Oliva transports patient to appointments and Nalini meets them there as she attends all appointments. Nalini reported patient is currently scheduled for an appointment at [facility] for patient of his [facility] evaluation on Nov 06. Nalini explained this appointment was the beginning of his evaluation to get him on the VA insurance which she knows would be the payer source for LTC if patient were to need this in the future. NAHEED explained tomorrow is team conference day and the long term care social worker would meet with patient to discuss how the team feels he is doing and if they feel he would be ready for discharge in the next week. NAHEED explained once they have a discharge date in mind they would schedule a family meeting. Nalini explained she would not be there tomorrow afternoon but would be okay with social work calling her if they need to discuss his progress but she would be able to be in person for the family meeting as long as she is given notice. No further questions or concerns at this time.
[2023-10-31] MEDS ORDERED: Albuterol/Ipratropium 3 MG-0.5 MG/3 ML Neb Soln IH PRN (17:45)
[2023-10-31 18:07] VITALS: BP 113/44; PULSE 63; TEMP 97.5
[2023-10-31] MEDS ORDERED: Memantine 5 MG TAB PO SCH (21:00)
[2023-10-31] MEDS ORDERED: Doxycycline Monohydrate 100 MG CAP PO SCH (21:00)
[2023-10-31] MEDS ORDERED: Atorvastatin 40 MG TAB PO SCH (21:00)
[2023-10-31 22:11] VITALS: BP 123/71; PULSE 71
[2023-10-31 22:21] VITALS: BP_SYST 123
--- NOTE | 2023-10-31 23:14 | NUR ---
PT WAS AT BEDSIDE. ASSESSMENT COMPLETED EARLIER, MEDICATIONS ADMINISTERED PER EMAR. PT IS CURRENTLY ON 1 L OF O2 PER NASAL CANNULA. PT AMBULATED TO BATHROOM AND VOIDED- PALE YELLOW. VSS. DENIES ANY N/V. PT STATES HE IS NOT SOB/SOA UNLESS HE IS MOVING. WHEN HE IS IN BED HE IS NOT SOA OR SOB. NIGHT HAS PROGRESSED, PT HAS BECOME CONFUSED. PT TRIES TO LEAVE BED WITHOUT USING CALL LIGHT. AMBULATED PT TO BATHROOM AND VOIDED PALE YELLOW URINE. PT KEEPS ASKING ABOUT KEYS AND WALLET - TOOK WALLET AND KEYS WITH HER. PT THINK THAT HE IS CURRENTLY AT A HOTEL. PT STATES THAT HE IS COLD- WARM BLANKET GIVEN TO PT. PT HAS NO OTHER COMPLAINTS AT THIS TIME. DOOR IS CURRENTLY OPEN, BED IS IN LOWEST POSITION, CALL LIGHT IS WITHIN REACH, BED ALARM IS ON. REMINDED PT TO USE CALL LIGHT WHEN HE NEEDS SOMETHING. VERBALIZES UNDERSTANDING
[2023-11-01] VITALS (8 sets, daily range): BP systolic 107–123; BP diastolic 66–70; PULSE 55–62; TEMP 97.5–98.1
--- NOTE | 2023-11-01 00:59 | NUR ---
PT IS CONFUSED AND BELIEVES HE IS IN HOTEL. PT THINKS HE IS LEAVING TOMORROW AND STATED "I HAVE TO THINK IF I WANT TO STAY ANOTHER DAY". TRIED REORIENTING PT AND EXPLAINING THAT HE IS SUPPOSED TO STAY FOR AT LEAST ANOTHER WEEK. PT HAS NO SLEPT AND STATES THAT "HE CANNOT SLEEP IN HIS BED". PT AMBULATED TO BEDSIDE CHAIR. CHAIR ALARM IS ON. PT CALLS TO ASK "WHY DID YOU LEAVE ME AND GO TO THE HOUSE".
--- NOTE | 2023-11-01 03:40 | NUR ---
CHECKED PATIENT SPO2, IT WAS RUNNING AT 90-91%. INCREASED O2 TO 1.5. SPO2 INCREASED TO 94%.
[2023-11-01] MEDS ORDERED: Cholecalciferol (Vit D3) 25 MCG (1,000 Units) TAB PO SCH (09:00)
[2023-11-01] MEDS ORDERED: Amiodarone 200 MG TAB PO SCH (09:00)
[2023-11-01] MEDS ORDERED: Febuxostat 40 MG TAB PO SCH (09:00)
[2023-11-01] MEDS ORDERED: Cyanocobalamin (Vit B-12) 1,000 MCG TAB PO SCH (09:00)
--- NOTE | 2023-11-01 09:15 | NUR ---
Pt. sitting up in bed. Pt. is Alert and oriented but forgetful. Pt. denies pain or other needs, call light within reach.
--- NOTE | 2023-11-01 13:42 | NUR ---
NAHEED secure emailed updates to [facility]. Discharge plan: Home with [facility] - [facility] on 11/09
--- NOTE | 2023-11-01 16:16 | NUR ---
Acetylene Torch Solderer met with patient to present and review team conference notes. SW advised we are looking at a discharge date of 11/10/23. Patient is agreeable to this. Patient does not normally wear oxygen so SW explained that she would assist with setting up home oxygen if needed. SW contacted patient's daughter, Nalini with the above update. Family meeting scheduled for 11/08/23 at 1300.
--- NOTE | 2023-11-01 23:33 | NUR ---
PT LAYING IN BED. O2 ATTACHED AT 1.5L VIA NC. WHEN ASKED HE STATES HE HAS SLIGHT SOA. DENIES N/V. COMPLAINS OF NO PAIN. CALL LIGHT IS WITHIN REACH. BED IS IN LOWEST POSITON.
[2023-11-02] VITALS (9 sets, daily range): BP systolic 107–126; BP diastolic 45–71; PULSE 55–61; TEMP 97.2–99.2
[2023-11-02 06:54] LABS: BASO # 0.1 K/mm3 (0.0-0.2); EOS # 0.2 K/mm3 (0.0-0.7); EOS % 3.3 % (0.0-4.0); GRAN # 3.6 K/mm3 (1.4-6.5); GRAN % 73.7 % (42.2-75.2); LYMPH # 0.6 K/mm3 (1.2-3.4); LYMPH % 13.1 % (20.0-51.0); MEAN CELL VOLUME 89 fl (80.0-100.0); MEAN CORPUSCULAR HGB CONC 30 g/dl (33.0-37.0); MEAN PLATELET VOLUME 9.4 fl (7.4-10.4); MONO # 0.4 K/mm3 (0.1-0.6); MONO % 8.5 % (1.7-9.3); PLATELET COUNT 210 K/mm3 (130-400); RED BLOOD COUNT 2.83 M/mm3 (4.20-5.60); REDCELL DISTRIBUTION WIDTH-CV 15.7 % (11.5-14.5)
[2023-11-02 07:11] LABS: CALCIUM 8.8 mg/dL (8.4-10.2); CREATININE, serum 2.65 mg/dL (0.72-1.25); POTASSIUM 4.3 mEq/L (3.5-4.5)
[2023-11-02 07:15] LABS: HEMATOCRIT 25.3 % (42.0-52.0); HEMOGLOBIN 7.6 g/dl (13.5-18.0); MEAN CORPUSCULAR HEMOGLOBIN 27 pg (27-31)
--- NOTE | 2023-11-02 08:30 | NUR ---
PT A&OX3. SOME INTERMITTENT CONFUSION NOTED THIS MORNING. CURRENTLY IN BED EATING BREAKFAST. UP WITH ASSIST X1 WITH GAIT BELT. SHIFT ASSESSMENT COMPLETE AND MEDICATIONS ADMINISTERED. VSS. NO FURTHER NEEDS AT THIS TIME. CALL LIGHT AND PERSONAL BELONGINGS WITHIN REACH. BED EXIT ALARM ON.
--- NOTE | 2023-11-02 19:30 | NUR ---
Patient resting in chair with at bedside. Denies any pain or needs at this time. Assessment complete. Call light and personal items in reach. Chair alarm in place
[2023-11-03 06:55] VITALS: BP 120/61; PULSE 61; TEMP 98.4
[2023-11-03 07:15] VITALS: BP_SYST 120
--- NOTE | 2023-11-03 09:52 | NUR ---
Patient awake, alert, forgetful. Frequently needs reoriented and reminded that he can not get up on his own. Bed alarm and chair alarms in place. Denies pain or nausea, shortness of breath on exertion, 1L NC in place. Bed in lowest position with call light within reach.
--- NOTE | 2023-11-03 15:55 | NUR ---
Admission QIM scores were reviewed by the team. Code of 4 chosen for toileting hygiene was determined by team discussion to be the most usual performance for this patient during the discharge assessment period.--PD Yvonne
[2023-11-03 18:22] VITALS: BP 104/61; PULSE 55; TEMP 97.3
[2023-11-03 19:13] VITALS: BP_SYST 104
--- NOTE | 2023-11-03 20:00 | NUR ---
PT AWAKE AND RESTING IN BED, WATCHING TV. AND DAUGHTER AND BEDSIDE. SCHEDULED MEDS GIVEN PER eMAR. PT DENIES PAIN AND N/V. 1L O2 VIA NC. NO FURTHER CONCERNS. BED ALARM ON AND CALL LIGHT WITHIN REACH.
[2023-11-04 05:16] VITALS: BP 116/67; PULSE 56; TEMP 98.5
[2023-11-04 08:43] VITALS: BP_SYST 116
--- NOTE | 2023-11-04 09:00 | NUR ---
Patient resting in bed, alert and oriented x 4, finishing his breakfast. Denies any pain or discomfort. Assessment completed, meds given. Assisted to the bathroom. No further needs at this time. Call light within reach.
--- NOTE | 2023-11-04 11:47 | NUR ---
SW faxed clinical updates to [facility].
[2023-11-04 17:48] VITALS: BP 104/59; PULSE 54; TEMP 98.3
[2023-11-04 18:51] VITALS: BP_SYST 104
--- NOTE | 2023-11-04 20:00 | NUR ---
PT SLEEPING IN BED, EASILY AROUSED. SCHEDULED MEDS GIVEN PER eMAR. PT DENIES PAIN OR DISCOMFORT. 0.5L O2 VIA NC. NO FURTHER CONCERNS. BED ALARM ON AND CALL LIGHT WITHIN REACH.
[2023-11-05 05:57] VITALS: BP 128/62; PULSE 62; TEMP 98.1
[2023-11-05 07:33] VITALS: BP_SYST 128
--- NOTE | 2023-11-05 07:45 | NUR ---
UPON ENTERING ROOM PATIENT SETTING UP FOR BREAKFAST. ALERT AND ORIENTED X4. VSS WNL, 0.5 L /. DENIES PAIN SOME BLE EDEMA NOTED. CALL LIGHT WITHIN REACH. BED AT LOWEST POSITION. BED ALARM ON.
--- NOTE | 2023-11-05 14:09 | NUR ---
REFINERY OPERATOR sent clinical updats to [facility]
[2023-11-05 17:42] VITALS: BP 137/79; PULSE 58; TEMP 97.6
[2023-11-05 19:24] VITALS: BP_SYST 137
--- NOTE | 2023-11-05 22:26 | NUR ---
PT LAYING IN BED. SCD'S APPLIED. DENIES N/V. STATES HE IS SOA WHEN EXERTING HIMSELF. CALL LIGHT IS WITHIN REACH. BED ALARM IS ON. NO COMPLAINTS AT THIS TIME. ASSESSMENT COMPLETED EARLIER, MEDICATIONS ADMINISTERED PER EMAR.
[2023-11-06 05:35] VITALS: BP 109/63; PULSE 68; TEMP 97.7
[2023-11-06 07:00] VITALS: BP_SYST 109
--- NOTE | 2023-11-06 09:14 | NUR ---
PT UP TO RECLINER FOR BREAKFAST AFTER USING BR. TRANSFERS WITH SLOW GAIT. GAIT BELT AND WALKER FOR TRANSFERS. ATE 80% OF BREAKFAST. PT DENIES PAIN OR NEEDS AT THIS TIME.
--- NOTE | 2023-11-06 14:54 | NUR ---
Technical Inspector met with patient to check in after the weekend. Patient stated he is doing alright but would be better if he were out of the hospital. SW reminded patient about his family meeting on Monday. SW also contacted his daughter, Nalini to confirm the meeting for Monday at 1300. Nalini advised she will be there with her mom and sister.
[2023-11-06 17:59] VITALS: BP 106/64; PULSE 54; TEMP 97.7
[2023-11-06 20:00] VITALS: BP_SYST 106
--- NOTE | 2023-11-06 22:18 | NUR ---
UPON SHIFT ASSESSMENT, PATIENT WAS IN BED ON PHONE WITH VISITING BEDSIDE. HE IS A&O X 4, VS ARE WNL AND ABDOMEN DISTENDED, SOFT WITH AUDIBLE BOWEL SOUNDS. PATIENT DENIES BLOODY OR TARRY STOOLS. UTILIZED CALL LIGHT FOR STANDBY ASSIST TO RESTROOM (GOOD EFFORT, STEADY GAIT), HOWEVER, FORGOT TO USE CALL LIGHT TO AMBULATE BACK TO BED. PATIENT EDUCATION WAS PROVIDED. BED ALARM ON, CALL LIGHT WITHIN REACH.
--- NOTE | 2023-11-06 22:26 | NUR ---
SECOND ATTEMPT TO REAPPLY SCDs, PATIENT REFUSES.
--- NOTE | 2023-11-07 00:22 | NUR ---
ASSISTED PATIENT TO RESTROOM, GAIT STEADY, HOWEVER, PATIENT C/O FEELING "WHOOZY." REPEAT BP AND PULSE-130/99, PULSE 60, O2 93% ON RA AND PATIENT IS A&O X4- ALL WNL-WILL CONTINUE VIGILANCE. PATIENT DENIES CHEST PAIN AND SOA.
[2023-11-07 00:40] VITALS: BP 130/99; PULSE 60
[2023-11-07 06:00] VITALS: BP 129/72; PULSE 61; TEMP 98
[2023-11-07 07:00] VITALS: BP_SYST 129
[2023-11-07 07:02] LABS: EOS # 0.1 K/mm3 (0.0-0.7); EOS % 2.4 % (0.0-4.0); GRAN % 72.2 % (42.2-75.2); LYMPH # 0.7 K/mm3 (1.2-3.4); LYMPH % 15.6 % (20.0-51.0); MEAN CELL VOLUME 89 fl (80.0-100.0); MEAN CORPUSCULAR HGB CONC 31 g/dl (33.0-37.0); MEAN PLATELET VOLUME 9.5 fl (7.4-10.4); MONO # 0.4 K/mm3 (0.1-0.6); MONO % 8.6 % (1.7-9.3); PLATELET COUNT 173 K/mm3 (130-400); RED BLOOD COUNT 3.19 M/mm3 (4.20-5.60); REDCELL DISTRIBUTION WIDTH-CV 16.4 % (11.5-14.5)
[2023-11-07 07:06] LABS: HEMATOCRIT 28.4 % (42.0-52.0); HEMOGLOBIN 8.8 g/dl (13.5-18.0); MEAN CORPUSCULAR HEMOGLOBIN 28 pg (27-31)
[2023-11-07 07:15] LABS: CALCIUM 8.8 mg/dL (8.4-10.2); CREATININE, serum 2.47 mg/dL (0.72-1.25); POTASSIUM 3.9 mEq/L (3.5-4.5)
--- NOTE | 2023-11-07 09:00 | NUR ---
Pt is alert. Some confusion noted regarding therapy and repeated phrases. Pt is up with assist x1 w/ GB. No c/o pain this morning. Currently laying in bed. Shift assessment complete and medications administered. VSS. Pt is on RA at this time. No further needs. Call light and personal belongings within reach.
[2023-11-07 18:18] VITALS: BP 110/59; PULSE 54; TEMP 98.1
[2023-11-07 18:45] VITALS: BP_SYST 110
--- NOTE | 2023-11-07 20:38 | NUR ---
Patient resting in bed. Denies any pain. Snack provided, needs met. Assessment complete. Call light and personal items in reach. Bed in low position and bed alarm on.
[2023-11-08 05:24] VITALS: BP 118/63; PULSE 55; TEMP 98.3
[2023-11-08 07:00] VITALS: BP_SYST 118
--- NOTE | 2023-11-08 08:00 | NUR ---
Pt alert. Pt is upset and stating that he hasn't had a shower the whole time he's been her and insisting on taking on now. Explained to pt that OT will be in soon to give him one. Had to explain this a few more times to pt until he verbalized understanding. Pt was more calm after the discussion. Some confusion noted. No supplemental oxygen worn at this time. VSS. No c/o pain. Shift assessment complete and medications administered. Pt is up with SBA and gait belt. No further needs at this time. Call light and personal belongings within reach. Bed exit alarm on.
[2023-11-08] MEDS ORDERED: Polyethylene Glycol 3350 17 GM PDS PO SCH (12:13)
[2023-11-08 16:26] VITALS: BP 115/68; PULSE 54; TEMP 98.1
--- NOTE | 2023-11-08 16:34 | NUR ---
Manager Retention participated in patient's family meeting which included patient's and two daughters. Nilsa IPR Director opened the meeting followed by a medical update from Dr. Zaman. PT/OT/ST provided update on progress and recommendations. At this time it is not recommended patient drive. Patient's family advised patient does not drive and his daughters manage/administer the medications. Patient gets Home Health services from [facility], which will continue at time of discharge. Patient's daughter expressed concern with patient following through on staying active and IPR Director encouraged family to start planning now for when services end. After the meeting, SW attempted to meet with patient to provide team conference notes, but he was sleeping. SW left copy of notes on patient's table. NAHEED sent clinical updates to Sebastian at [facility] via secure email.
[2023-11-08 18:50] VITALS: BP_SYST 115
--- NOTE | 2023-11-08 19:15 | NUR ---
Patient resting in chair. Assisted patient to bathroom and to bed. Assisted patient with oral care. Needs met. Assessment complete. Call light and personal items in reach. Bed in low position and bed alarm on.
[2023-11-09 05:53] VITALS: BP 123/72; PULSE 67; TEMP 98.2
[2023-11-09 07:00] VITALS: BP_SYST 123
--- NOTE | 2023-11-09 09:14 | NUR ---
PT AMBULATING WITH THEAPY IN HALLS WITH MIN ASSIST. GAIT STEADY. EATING AND DRINKING NO NAUSEA OR VOMITING. CONTINUES TO BE IMPULSIVE. CALL LIGHT ON.
--- NOTE | 2023-11-09 16:33 | NUR ---
Fusion Operator contacted patient's daughter, Nalini to review IM form via phone call.
[2023-11-09 17:03] VITALS: BP 128/71; PULSE 57; TEMP 98.1
[2023-11-09 19:33] VITALS: BP_SYST 128
--- NOTE | 2023-11-10 00:45 | NUR ---
PT LAYING IN BED. PT HAS NO COMPLAINTS AT THIS TIME. MEDICATIONS ADMINISTERED PER EMAR. ASSESSMENT COMPLETED EARLIER. PT IS A/OX4. DENIES SOB, N/V. CALL LIGHT IS WITHIN REACH. BED IS IN LOWEST POSITION.
[2023-11-10 06:09] VITALS: BP 113/59; PULSE 53; TEMP 98.3
--- NOTE | 2023-11-10 06:50 | NUR ---
appears to be sleeping, bedside shift report received from ZAINA Stoner
[2023-11-10 07:02] VITALS: BP_SYST 113
--- NOTE | 2023-11-10 07:40 | NUR ---
awake and lying in bed, ready for breakfst
--- NOTE | 2023-11-10 07:40 | NUR ---
sitting up in chair and having breakfast, denies needs at this tie
--- NOTE | 2023-11-10 08:45 | NUR ---
had breakfast and tolerated well, full assessment completed, see interventions for further info, denies needs at this time
--- NOTE | 2023-11-10 09:00 | NUR ---
Dr Lucio in to see patient
--- NOTE | 2023-11-10 12:40 | NUR ---
discharge instructions given to patient and his and daughter, verbalizes understanding
--- NOTE | 2023-11-10 12:51 | NUR ---
discharged per WC
--- NOTE | 2023-11-10 15:27 | NUR ---
Looping Inspector contacted Sebastian at [facility] and faxed discharge orders.
--- NOTE | 2023-11-14 07:31 | NUR ---
Discharge QIM scores were reviewed by the team. Code of 6 chosen for walking 10 feet was determined by team discussion to be the most usual performance for this patient during the discharge assessment period. Code of 6 chosen for walking 50 feet w/ 2 turns was determined by team discussion to be the most usual performance before interventions for this patient during the discharge assessment period. Code of 6 chosen for walking 150 feet was determined by team discussion to be the most usual performance for this patient during the discharge assessment period. Code of 6 chosen for walk 10 feet on uneven surface was determined by team discussion to be the most usual performance for this patient during the discharge assessment period.--Nilsa Stallworth, PD
== END 2023-11-10 12:51 | disposition home health service (06) | DRG 947 ==
PROVIDERS: Physician Assistant; ADMIT Physical Medicine & Rehabilitation Sports Medicine
DX: R53.81 Other malaise (principal); J96.01 Acute respiratory failure with hypoxia; Q27.30 Arteriovenous malformation, site unspecified; D62 Acute posthemorrhagic anemia; N18.4 Chronic kidney disease, stage 4 (severe); N17.9 Acute kidney failure, unspecified; F03.90 Unspecified dementia, unspecified severity, without behavioral disturbance, psychotic disturbance, mood disturbance, and anxiety; E78.5 Hyperlipidemia, unspecified; E03.9 Hypothyroidism, unspecified; M10.9 Gout, unspecified; N40.0 Benign prostatic hyperplasia without lower urinary tract symptoms; R26.89 Other abnormalities of gait and mobility; I48.91 Unspecified atrial fibrillation; R91.8 Other nonspecific abnormal finding of lung field; I25.10 Atherosclerotic heart disease of native coronary artery without angina pectoris; Z95.5 Presence of coronary angioplasty implant and graft; Z79.899 Other long term (current) drug therapy; Z86.73 Personal history of transient ischemic attack (TIA), and cerebral infarction without residual deficits; Z74.09 Other reduced mobility